=== PATIENT | female | born 1935 | race Caucasian/White ===

== ENCOUNTER 2018-03-16 03:49 | Outpatient (CLI) ==
[2016-08-10 17:05] VITALS: BMI 20.2
== END 2018-03-16 03:50 | disposition home or self-care (01) ==
LOC: LAB 03:49
PROVIDERS: ATTEND General Practice
DX: L02.512 Cutaneous abscess of left hand (principal)
CPT/HCPCS: 87070

== ENCOUNTER 2019-01-09 09:11 | Inpatient (IN) ==
[2019-01-09] MEDS ORDERED: DILAUDID 0.5 MG/0.5 ML SYRINGE IVP STA ×2 (09:25→10:38)
[2019-01-09] MEDS ORDERED: DILAUDID 0.5 MG/0.5 ML SYRINGE ONE (09:27)
--- NOTE | 2019-01-09 09:27 | ED.PDOC ---
General ED Provider: Dr. EDEN VAZQUEZ Chief Complaint: Shortness of Air Stated Complaint: Patient states she has a pain in back muscles Time Seen by Physician: 15:00 Mode of Arrival: Ambulance Information Source: Patient, EMT Exam Limitations: No limitations Primary Care Provider: JAIMIE WOODALL Nursing and Triage Documentation Reviewed and Agree: Yes Does patient meet sepsis criteria?: No System Inflammatory Response Syndrome: Not Applicable Sepsis Protocol: For patient's 13 years and over: Temp is 96.8 and below OR 101 and greater Pulse >90 BPM Resp >20/minute Acutely Altered Mental Status Are patient's symptoms suggestive of a new infection, such as: -Pneumonia -Skin, Soft Tissue -Endocarditis -UTI -Bone, Joint Infection -Implantable Device -Acute Abdominal Infection -Wound Infection -Meningitis -Blood Stream Catheter Infection -Unknown Musculoskeletal Complaint Exam - Back Pain Complaint/Exam Mechanism of Injury: Reports: No known trauma Onset/Duration: today Symptoms Are: Still present Timing: Constant Episodes Lasting: Hours Initial Severity: Moderate Current Severity: Moderate Location: Reports: Diffuse Character: Reports: Aching Alleviating: Reports: Rest, Position Associated Signs and Symptoms: Reports: Pain with weight bearing TAD Risk Factors: Reports: Hypertension AAA Risk Factors: Reports: Hypertension Cauda Equina Risk Factors: Reports: None Epidural Abcess Risk Factors: Reports: None Related Surgical History: Reports: None Focal Tenderness: No Paraspinal Muscle Tenderness: No (Palpation-pressure is negative) Paraspinal Muscle Spasm: No Focal Weakness: Present: None Focal Sensory Loss: Present: None Differential Diagnoses: Strain, Sprain Review of Systems - Review Of Systems Constitutional: Reports: No symptoms Eyes: Reports: No symptoms Ears, Nose, Mouth, Throat: Reports: No symptoms Respiratory: Reports: No symptoms Cardiac: Reports: No symptoms GI: Reports: No symptoms : Reports: No symptoms Musculoskeletal: Reports: No symptoms Skin: Reports: No symptoms Neurological: Reports: No symptoms Endocrine: Reports: No symptoms Hematologic/Lymphatic: Reports: No symptoms All Other Systems: Reviewed and Negative Past Medical History - Past Medical History Previously Healthy: Yes Endocrine: Reports: None Cardiovascular: Reports: None Respiratory: Reports: COPD Hematological: Reports: None Gastrointestinal: Reports: None Genitourinary: Reports: None Neuro/Psych: Reports: None Musculoskeletal: Reports: None Cancer: Reports: None Last Menstrual Period: na - Surgical History General Surgical History: Reports: Unknown - Family History Family History: Reports: Unknown - Social History Smoking Status: Former smoker Hx Substance Use: No Alcohol Screening: None - Immunizations Tetanus Shot up to Date: No Physical Exam - Physical Exam Appearance: Thin Ill-appearing: Mild Pain Distress: Moderate Eyes: JEREMIAH ENT: Ears normal Neck: Supple Respiratory: Airway patent Cardiovascular: RRR GI/: Soft Musculoskeletal: Normal strength Skin: Warm Neurological: Sensation intact Interpretation - Radiology Interpretation Radiology Interpretation By: ED Physician Radiology Results: Negative Exam Interpreted: Portable CXR Re-Evaluation - Re-Evaluation Time of Re-Evaluation: 09:58 (bp 158/86) Status: Improved Vital Signs Stable: Yes Pain Level: decreased to almost 0 as per patient vertbal report Appearance: NAD Lungs: Clear Skin: Warm and Dry Neuro: Alert and Oriented X3 CV: Other Additional Comments: Patient in no apparent pain,says will take her BP meds at home to catch up. - Re-Evaluation Time of Re-Evaluation: 10:54 (BP 145/87) Status: Improved Vital Signs Stable: Yes Pain Level: comfortable after second dose 0.5 mg Dilaudid IV.NS infusing at 125/ h rate Appearance: NAD Skin: Warm and Dry Neuro: Alert and Oriented X3 Critical Care Note - Critical Care Note Total Time (mins): 0 Course - Course Hematology/Chemistry: 01/09/19 09:48 01/09/19 09:48 Orders, Labs, Meds: Lab Review 01/09/19 01/09/19 01/09/19 09:48 09:48 09:48 WBC 13.64 H RBC 4.57 Hgb 14.2 Hct 43.3 MCV 94.7 MCH 31.1 H MCHC 32.8 RDW Coeff of Nick 12.6 Plt Count 262 Immature Gran % (Auto) 1.5 Neut % (Auto) 60.8 Lymph % (Auto) 27.9 Tate % (Auto) 8.3 Eos % (Auto) 1.1 Baso % (Auto) 0.4 Immature Gran # (Auto) 0.2 Neut # (Auto) 8.3 H Lymph # (Auto) 3.8 H Tate # (Auto) 1.1 Eos # (Auto) 0.2 Baso # (Auto) 0.1 D-Dimer (Manual) 2899.20 Sodium 140.7 Potassium 4.10 Chloride 109.0 H Carbon Dioxide 26.9 Anion Gap 8.90 BUN 16.7 Creatinine 0.97 Estimated GFR (MDRD) 55.00 BUN/Creatinine Ratio 17.21 Glucose 95.6 Lactic Acid Calcium 10.02 Total Bilirubin 0.66 AST 30.1 ALT 24.6 Alkaline Phosphatase 59.6 Total Creatine Kinase 67.2 Troponin I < 0.012 Total Protein 6.43 Albumin 3.87 Globulin 2.56 Albumin/Globulin Ratio 1.51 Procalcitonin 01/09/19 01/09/19 09:48 09:48 WBC RBC Hgb Hct MCV MCH MCHC RDW Coeff of Nick Plt Count Immature Gran % (Auto) Neut % (Auto) Lymph % (Auto) Tate % (Auto) Eos % (Auto) Baso % (Auto) Immature Gran # (Auto) Neut # (Auto) Lymph # (Auto) Tate # (Auto) Eos # (Auto) Baso # (Auto) D-Dimer (Manual) Sodium Potassium Chloride Carbon Dioxide Anion Gap BUN Creatinine Estimated GFR (MDRD) BUN/Creatinine Ratio Glucose Lactic Acid 1.15 Calcium Total Bilirubin AST ALT Alkaline Phosphatase Total Creatine Kinase Troponin I Total Protein Albumin Globulin Albumin/Globulin Ratio Procalcitonin < 0.05 Orders Category Date Time Status EKG-(ED ONLY) Stat CARDIO 01/09/19 09:34 Completed NPO REMINDER: IMAGING ONCE CARE 01/09/19 09:34 Active IV [ED IV/MEDIPORT/POWERPORT] .ONCE EMERGENCY 01/09/19 09:29 Active BLOOD CULTURE Stat LAB 01/09/19 10:15 Received CBC W/ AUTO DIFF Stat LAB 01/09/19 09:48 Completed COMPREHENSIVE METABOLIC PANEL Stat LAB 01/09/19 09:48 Completed CREATINE KINASE Stat LAB 01/09/19 09:48 Completed D-DIMER Stat LAB 01/09/19 09:48 Completed LACTIC ACID Stat LAB 01/09/19 09:48 Completed PROCALCITONIN Stat LAB 01/09/19 09:48 Completed TROPONIN I Stat LAB 01/09/19 09:48 Completed 0.9 % Sodium Chloride [Saline Flush] MEDS 01/09/19 09:29 Active 1 syr IVF PRN PRN Hydromorphone HCl [Dilaudid 0.5 mg/0.5 ml Syringe] MEDS 01/09/19 09:27 Discontinued 0.5 mg .ROUTE .STK-MED ONE Hydromorphone HCl [Dilaudid 0.5 mg/0.5 ml Syringe] MEDS 01/09/19 09:25 Discontinued 0.5 mg IVP ONCE STA Hydromorphone HCl [Dilaudid 0.5 mg/0.5 ml Syringe] MEDS 01/09/19 10:38 Discontinued 0.5 mg IVP ONCE STA Sodium Chloride 0.9% [Sodium Chloride] 500 ml MEDS 01/09/19 10:19 Active IV 100 mls/hr CHEST, 1V AP ONLY Stat RADS 01/09/19 09:[address] CHEST PE PROTOCOL Stat RADS 01/09/19 09:33 Completed Medications Generic Name Dose Route Start Last Admin Trade Name Freq PRN Reason Stop Dose Admin Sodium Chloride 500 mls @ 100 mls/hr 01/09/19 10:19 01/09/19 10:33 Sodium Chloride IV 01/09/19 15:18 100 mls/hr .Q5H STA Administration Sodium Chloride 1 syr 01/09/19 09:29 01/09/19 10:33 Saline Flush IVF 1 syr PRN PRN Administration To flush IV Discontinued Medications Generic Name Dose Route Start Last Admin Trade Name Freq PRN Reason Stop Dose Admin Hydromorphone HCl 0.5 mg 01/09/19 09:25 01/09/19 09:29 Dilaudid 0.5 Mg/0.5 Ml Syringe IVP 01/09/19 09:26 0.5 mg ONCE STA Administration Hydromorphone HCl 0.5 mg 01/09/19 10:38 01/09/19 10:43 Dilaudid 0.5 Mg/0.5 Ml Syringe IVP 01/09/19 10:39 0.5 mg ONCE STA Administration Vital Signs: Temp Pulse Resp BP Pulse Ox 01/09/19 09:12 97.8 F 124 H 25 H 161/89 H 98 Departure - Departure Time of Disposition: 12:54 Disposition: HOME SELF-CARE Discharge Problem: Aortic aneurysm Instructions: Thoracic Aortic Aneurysm (ED) Condition: Good Pt referred to PMD for follow-up: No (follow with Cardiology and Thoracic Sx) IPMP verified?: No Allergies/Adverse Reactions: Allergies cephalexin monohydrate [From Keflex] Allergy (Verified 01/09/19 09:23) palpatations codeine Adverse Reaction (Verified 01/09/19 09:23) diphenhydramine [From Benadryl] Adverse Reaction (Verified 01/09/19 09:23) latex Adverse Reaction (Verified 01/09/19 09:23) meperidine [From Demerol] Adverse Reaction (Verified 01/09/19 09:23) Home Medications: Ambulatory Orders Albuterol Sulfate [Proventil Hfa] 6.7 gm IH DIRECTED PRN 08/10/16 Carboxymethylcellulose Sodium [Refresh Tears] 2 drop EACHEYE DIRECTED Furosemide 20 mg PO 3 TIMES PER WEEK 08/10/16 Potassium Chloride [Klor-Con Sprinkle] 10 meq PO 3 TIMES PER WEEK 08/10/16 Tiotropium Br/Olodaterol HCl [Stiolto Respimat Inhal Clothier] 4 gm IH DAILY Prednisone 5 mg PO DAILY 03/15/18 Diltiazem HCl [Cardizem] 60 mg PO BID 01/09/19 Disposition Discussed With: Patient, Family
[2019-01-09] MEDS ORDERED: SODIUM CHLORIDE 500 ML IV STA (10:19)
--- NOTE | 2019-01-09 11:06 | DI ---
EXAM: One-view chest HISTORY: Chest discomfort, shortness of breath TECHNIQUE: Single frontal view the chest was obtained. FINDINGS: The heart is normal size. Emphysematous changes are seen throughout the lungs. The point vasculature appears normal. The costophrenic angles are sharp. There is hyperinflation of the lung s and flattening of the hemidiaphragms bilaterally. IMPRESSION: Chronic obstructive pulmonary disease. Otherwise no active cardiopulmonary disease.
--- NOTE | 2019-01-09 11:50 | CT ---
Exam: CTA chest. Date: 01/09/2019. Comparison: 08/10/2016. HISTORY: Shortness of breath. TECHNIQUE: Helical scan of the thorax was performed following intravenous contrast. MIP and 3-D rec onstruction was performed. FINDINGS: The thoracic inlet and axillary regions are normal. No suspicious mediastinal adenopathy is seen. When measured at the level of the right main pulmonary artery, image 61, the ascending aort a measures 3.3 x 2.7 cm. At the level of the left atrium, image 70, the descending thoracic aorta me asures 3.6 x 3.6 cm. At about the base of the heart, image 78, the thoracic aorta measures 4.3 x 5.1 cm. Previously it measured 4.0 x 4.6 cm at approximately the same level. The spleen and upper live r have a uniform enhancement. The stomach, pancreas and adrenal glands are normal. There is a 0.3-c m nonobstructing calculus in the upper pole of the left kidney. There is no hydronephrosis. There is an interval wedge compression fracture of the T8 vertebral body, but it appears to be older. There is a stable compression deformity of the superior endplate of L3. Evaluation at lung window settings demonstrates centrolobular emphysematous changes. No suspicious p ulmonary nodules, pleural fluid or consolidation is present. There is good enhancement of the pulmonary arteries. No intraluminal filling defects are seen out to the segmental pulmonary arterial divisions. Impression: No acute intrathoracic findings; no evidence of pulmonary emboli out to the segmental pu lmonary arterial divisions. When compared with 08/10/2016, there has been a small but definite increase in the previously identif ied dilatation of the descending thoracic aorta. The luminal diameter has increased from 4.0 x 4.6 c m up to 4.3 x 5.1 cm. Given this interval enlargement, vascular surgical consultation would be recom mended. Emphysema. Nonobstructing left renal calculus. Interval development of a T8 wedge compression fracture, but it appears to be old. Stable old compre ssion deformity of the superior endplate of L3.
[2019-01-09] MEDS: TORADOL IVP PRN (13:58)
--- NOTE | 2019-01-09 14:46 | CT ---
EXAM: CT scan of the lumbar spine without contrast HISTORY: Low back pain, no obvious injury TECHNIQUE: Helical imaging of the lumbar spine was performed without contrast. Sagittal and coronal reconstructions and axial images were provided for interpretation. FINDINGS: There is chronic appearing compression deformity of the L3 and L4 vertebral bodies. No de finite new compression fractures are seen. The bones are osteopenic. The paraspinal soft tissues ar e normal. The spinous processes and transverse processes are intact. There is dilatation of the dis ban descending thoracic aorta measuring 3.9 cm diameter. There is additional aneurysmal dilatation o f the infrarenal abdominal aorta measuring 3.2 cm transverse. Segmental analysis: T12-L1: The central canal and neural foramina appear patent. L1-L2: The central canal and neural foramina appear adequately patent. L2-L3: The central canal and neural foramina appear adequately patent. L3-L4: There is mild disc bulge. The central canal and neural foramina appear adequately patent. L4-L5: There is disc bulge and mild to moderate facet arthropathy and enlargement of the posterior l igament flavum resulting in mild central canal and lateral recess stenosis. There is mild narrowing of the neural foramina. L5-S1: The central canal and lateral recesses and neural foramina appear adequately patent. IMPRESSION: No evidence of acute compression fracture. Chronic appearing compression deformity of the L3 and L4 vertebral bodies. Mild central canal and lateral recess stenosis seen at L4-L5. Aneurysmal dilatation of the distal descending thoracic aorta measuring 3.9 cm diameter. Aneurysmal dilatation of the infrarenal abdominal aorta measuring 3.2 cm.
[2019-01-09 15:06] VITALS: BMI 21.8
[2019-01-09] MEDS ORDERED: XOPENEX 1.25 MG NEB PRN (15:25)
[2019-01-09] MEDS ORDERED: NITROSTAT SL PRN (15:33)
[2019-01-09] MEDS ORDERED: ATROPINE SULFATE PFS IVP PRN (15:33)
[2019-01-09] MEDS: SODIUM CHLORIDE 1,000 ML IV SCH (15:37)
[2019-01-09] MEDS ORDERED: PROAIR HFA IH PRN (15:49)
[2019-01-09] MEDS ORDERED: NON-FORMULARY MEDICATION (Potassium Chloride [Klor-Con 10] 10 MEQ) PO SCH (16:00)
[2019-01-09] MEDS ORDERED: MICRO-K CAP PO SCH (16:00)
[2019-01-09] MEDS ORDERED: LASIX TAB PO SCH (16:00)
[2019-01-09] MEDS ORDERED: CARBOXYMETHYLCELLULOSE SODIUM EACHEYE SCH (16:00)
[2019-01-09] MEDS: DECADRON 4 MG/ML SDV IM SCH (16:08)
[2019-01-09] MEDS: MICRO-K CAP PO SCH (16:08)
[2019-01-09] MEDS: CARDIZEM PO SCH ×2 (16:08→21:34)
[2019-01-09] MEDS: DILAUDID 1 MG/ML SYRINGE IVP PRN (16:13)
[2019-01-09] MEDS ORDERED: XOPENEX 1.25 MG NEB ONE (16:20)
[2019-01-09] MEDS ORDERED: SOLU-CORTEF 100 MG ONE (21:35)
[2019-01-09] MEDS ORDERED: SOLU-CORTEF 100 MG IVP STA (21:39)
[2019-01-10] MEDS ORDERED: XOPENEX 1.25 MG NEB ONE (01:52)
[2019-01-10] MEDS: TORADOL IVP PRN ×2 (01:56→08:33)
[2019-01-10] MEDS: SODIUM CHLORIDE 1,000 ML IV SCH ×2 (03:52→16:43)
[2019-01-10] MEDS: DILAUDID 1 MG/ML SYRINGE IVP PRN ×3 (04:08→16:44)
[2019-01-10] MEDS: XOPENEX 1.25 MG NEB SCH ×4 (04:43→23:02)
[2019-01-10] MEDS ORDERED: SOLU-CORTEF 100 MG IVP STA (07:52)
[2019-01-10] MEDS ORDERED: ARTIFICIAL TEARS OPTH SOL OP SCH (08:00)
[2019-01-10] MEDS: CARDIZEM PO SCH ×2 (08:34→20:40)
[2019-01-10] MEDS: DECADRON 4 MG/ML SDV IM SCH (08:34)
[2019-01-10] MEDS: ZITHROMAX PO SCH (08:35)
[2019-01-10] MEDS: LASIX TAB PO SCH (08:35)
[2019-01-10] MEDS: ASPIRIN EC PO SCH (08:35)
[2019-01-10] MEDS: PREDNISONE PO SCH ×2 (08:35→16:46)
[2019-01-10] MEDS: MICRO-K CAP PO SCH (08:35)
[2019-01-10] MEDS: LOVENOX SUBCUT SCH (08:35)
[2019-01-10] MEDS: TIOTROPIUM BR IH SCH (08:36)
[2019-01-10] MEDS: [UNRECOGNIZED DRUG - OTHER] IH SCH (08:36)
[2019-01-10] MEDS: OLODATEROL HCL IH SCH (08:36)
[2019-01-10] MEDS ORDERED: MYLANTA SUSP PO STA (09:20)
[2019-01-10] MEDS ORDERED: MYLANTA SUSP ONE (09:22)
--- NOTE | 2019-01-10 10:35 | PCM.PROG ---
Attending Provider: ATTENDING PROVIDER: Dr. JAIMIE WOODALL DATE OF SERVICE: 01/10/19 SUBJECTIVE: This 83 year old WHITE/ F was hospitalized 01/09/19. The patient was hospitalized with thoracolumbar muscle spasm with underlined chronic fractures of T and L spine by x-ray. The patient was sitting in the chair all day Thursday she was going to move and sit in the bed and that is when she had muscle spasms. They then brought her to the hospital on Thursday. Pain is much less. She is able to sit on the commode this morning. Breathing is somewhat better. REVIEW OF SYSTEMS: CONSTITUTIONAL: No night sweats. No fatigue, malaise, lethargy. No fever or chills. HEENT: Eyes: No visual changes. No eye pain. No eye discharge. ENT: No runny nose. No epistaxis. No sinus pain. No odynophagia. No congestion. RESPIRATORY: No cough, no congestion. No hemoptysis. Shortness of breath. CARDIOVASCULAR: No angina symptoms. No CHF symptoms. No atypical chest pain for CAD. No palpitations. No orthopnea.. GASTROINTESTINAL: No abdominal pain. No nausea or vomiting. No diarrhea or constipation. No hematemesis. No hematochezia. GENITOURINARY: No urgency. No frequency. No dysuria. No hematuria. No obstructive symptoms. No discharge. No pain. No significant abnormal bleeding. MUSCULOSKELETAL: No musculoskeletal pain; no joint swelling. Soreness of muscles in right flank area. NEUROLOGICAL: Awake, alert, oriented to time, place and person. No headache. No neck pain. No syncope. No seizures. No dizziness. PSYCHIATRIC: Not anxious. No depression. No suicidal thoughts. No homicidal thoughts. SKIN: No rash. No lesions. No wounds. ENDOCRINE: No unexplained weight loss. No weight gain. HEMATOLOGIC/LYMPHATIC: No anemia. No purpura. No petechiae. No prolonged or excessive bleeding. No palpable lymph nodes. PHYSICAL EXAMINATION: GENERAL: The patient is awake, alert and oriented, lying in bed in no distress. VITAL SIGNS: Temperature 97.3 F, Pulse 99, Respiratory Rate 20, BP 148/73, Pulse Ox 99% HEENT: Head normocephalic, atraumatic. Eyes: Extraocular muscles are intact. Pupils are equal, round and reactive to light and accommodation. Ears: No lesions. Nose appeared normal. Throat: No exudate or erythema. NECK: Supple. No JVD, no carotid bruit. No lymphadenopathy or thyromegaly. LUNGS: Decreased breath sounds but better air entry. Mild expiratory wheezing. Clear to auscultation. Percussion note normal. Chest symmetrical. HEART: S1, S2, no S3. No murmurs. No cyanosis or clubbing. No ascites. Pulses: Dorsalis pedis and posterior tibial pulses +1 both sides. ABDOMEN: Soft. Non-tender. Bowel sounds active. No CVA tenderness. No mass felt. EXTREMITIES: No edema. Full range of motion of all extremities, equal. NEUROLOGIC: No focal deficit. Cranial nerves II through XII are grossly intact. No headache, no double vision or headache. SKIN: Warm and dry. Intact. Turgor-normal. LYMPHATIC: No palpable lymph nodes/no lymphedema. MUSCULOSKELETAL: Normal joints with no swelling. Muscle tone is normal. LAB REVIEW: 01/10/19 04:45 01/10/19 04:45 01/10/19 04:45: PT 9.3, INR 0.93 01/10/19 04:45: WBC 10.03, RBC 4.09 L, Hgb 12.6, Hct 38.5, MCV 94.1, MCH 30.8, MCHC 32.7, RDW Coeff of Nick 12.5, Plt Count 208, Immature Gran % (Auto) 0.5, Neut % (Auto) 93.0, Lymph % (Auto) 3.3 L, Dodge % (Auto) 3.1, Eos % (Auto) 0.0, Baso % (Auto) 0.1, Immature Gran # (Auto) 0.1, Neut # (Auto) 9.3 H, Lymph # ( Auto) 0.3 L, Dodge # (Auto) 0.3 L, Eos # (Auto) 0.0, Baso # (Auto) 0.0 01/10/19 04:45: Sodium 139.7, Potassium 4.26, Chloride 106.0, Carbon Dioxide 25.0, Anion Gap 12.96, BUN 19.1 H, Creatinine 0.96, Estimated GFR (MDRD) 55.00, BUN/Creatinine Ratio 19.89, Glucose 151.3 H D, Calcium 9.54, Total Bilirubin 0.65, AST 34.1, ALT 27.1, Alkaline Phosphatase 59.2, Total Creatine Kinase 106.8 , Troponin I < 0.012, Total Protein 6.35, Albumin 3.88, Globulin 2.47, Albumin/ Globulin Ratio 1.57 01/09/19 20:20: Total Creatine Kinase 95.3, Troponin I < 0.012 01/09/19 20:00: Urine Color Yellow, Urine Clarity Clear, Urine pH 5.0, Ur Specific Somers 1.015, Urine Protein 1+, Urine Glucose (UA) Negative, Urine Ketones Negative, Urine Blood Negative, Urine Nitrite Negative, Urine Bilirubin Negative, Urine Urobilinogen 0.2, Ur Leukocyte Esterase Negative, Ur Squamous Epith Cells 0-2 01/09/19 09:48: Procalcitonin < 0.05 01/09/19 09:48: Lactic Acid 1.15 01/09/19 09:48: D-Dimer (Manual) 2899.20 01/09/19 09:48: Sodium 140.7, Potassium 4.10, Chloride 109.0 H, Carbon Dioxide 26.9, Anion Gap 8.90, BUN 16.7, Creatinine 0.97, Estimated GFR (MDRD) 55.00, BUN /Creatinine Ratio 17.21, Glucose 95.6, Calcium 10.02, Total Bilirubin 0.66, AST 30.1, ALT 24.6, Alkaline Phosphatase 59.6, Total Creatine Kinase 67.2, Troponin I < 0.012, Total Protein 6.43, Albumin 3.87, Globulin 2.56, Albumin/Globulin Ratio 1.51 01/09/19 09:48: WBC 13.64 H, RBC 4.57, Hgb 14.2, Hct 43.3, MCV 94.7, MCH 31.1 H , MCHC 32.8, RDW Coeff of Nick 12.6, Plt Count 262, Immature Gran % (Auto) 1.5, Neut % (Auto) 60.8, Lymph % (Auto) 27.9, Dodge % (Auto) 8.3, Eos % (Auto) 1.1, Baso % (Auto) 0.4, Immature Gran # (Auto) 0.2, Neut # (Auto) 8.3 H, Lymph # ( Auto) 3.8 H, Dodge # (Auto) 1.1, Eos # (Auto) 0.2, Baso # (Auto) 0.1 ASSESSMENT: Please see below. 1. Thoracolumbar muscle spasm underline chronic fracture of T and L spine. 2. Severe chronic lung disease 3. Hypertension 4. Dyslipidemia 5. Abdominal descending aortic aneurysm. PLAN: 1. The patient does not want referral for any reason. 2. The patient is Do Not Intubate and no respirator. Only CPR. 3. One extra dose of Solu-Cortef 4. Continue Toradol and Dilaudid 5. Xopenex treatment. Plan and coordination of the patient's care discussed in the presence of Snuff Box Finisher and nurse. CONDITION: Stable. SCRIBED BY: KENDRICK JONES Flour Blender Helper scribed while in presence of service performed by Dr. JAIMIE WOODALL on 01/10/19 (1300)
--- NOTE | 2019-01-10 11:36 | PN ---
DATE OF SERVICE: 01/09/19 SUBJECTIVE: 83 year old white female hospitalized with back pain. The patient's back pain is upper lumbar area and lower thoracic spine more on movement. The patient has this pain for several days. She decided to come to the emergency room. Incidental finding on CT scan of the chest showed abdominal aortic aneurysm 5.1 no dissection noted. REVIEW OF SYSTEMS: CONSTITUTIONAL: No night sweats. No fatigue, malaise, lethargy. No fever or chills. HEENT: Eyes: No visual changes. No eye pain. No eye discharge. ENT: No runny nose. No epistaxis. No sinus pain. No sore throat. No odynophagia. No congestion. RESPIRATORY: No cough, no congestion. No hemoptysis. No shortness of breath. CARDIOVASCULAR: No angina symptoms. No CHF symptoms. No atypical chest pain for CAD. No palpitations. No PND. No orthopnea. GASTROINTESTINAL: No abdominal pain. No nausea or vomiting. No diarrhea or constipation. No hematemesis. No hematochezia. GENITOURINARY: No urgency. No frequency. No dysuria. No hematuria. No obstructive symptoms. No discharge. No pain. No significant abnormal bleeding. MUSCULOSKELETAL: No musculoskeletal pain; no joint swelling. NEUROLOGICAL: No headache. No neck pain. No syncope. No seizures. No dizziness. PSYCHIATRIC: Not anxious. No depression. No suicidal thoughts. No homicidal thoughts. SKIN: No rash. No lesions. No wounds. ENDOCRINE: No unexplained weight loss. No weight gain. HEMATOLOGIC/LYMPHATIC: No anemia. No purpura. No petechiae. No prolonged or excessive bleeding. No palpable lymph nodes. PHYSICAL EXAMINATION: GENERAL: The patient is oriented to time, place and person. No distress. HEENT: Head normocephalic, atraumatic. Eyes: Extraocular muscles are intact. Pupils are equal, round and reactive to light and accommodation. Ears: No lesions. Nose appeared normal. Throat: No exudate or erythema. NECK: Supple. No JVD, no carotid bruit. No lymphadenopathy or thyromegaly. LUNGS:Mild wheeze with good entry. Clear to auscultation. Percussion note normal. Chest symmetrical. HEART: S1, S2, no S3. No murmurs. No cyanosis or clubbing. No ascites. Pulses: Dorsalis pedis and posterior tibial pulses +1 to +2 bilaterally. ABDOMEN: Soft. Nontender. Bowel sounds active. No CVA tenderness. No mass felt. EXTREMITIES: No edema. Full range of motion of all extremities, equal. NEUROLOGIC: No focal deficit. Cranial nerves II through XII are grossly intact. No headache, no double vision or headache. SKIN: Not dry. Intact. Turgor - normal. LYMPHATIC: No palpable lymph nodes/no lymphedema. MUSCULOSKELETAL: Normal joints with no swelling. Muscle tone is normal. Pain mainly located to the back area. LABS: Lumbar CT scan reports pending. ASSESSMENT: 1. Thoracolumbar muscle spasms 2. Chronic lung disease, severe 3. Hypertension 4. Sinus tachycardia 5. Aortic aneurysm PLAN: 1. Give patient IV Toradol 30mg Q 6 hours 2. Dilaudid 1mg Q 4 hours 3. Continue NEBS treatment 4. 1/2cc Decadron which help the back muscle spasm and probably chronic lung disease 5. The patient is going to be telemetry CONDITION: Stable. TIME SPENT: More than 30 minutes. ADDENDUM: The son was present in the room. The patient wants no intubation or respirator just a CPR without intubation. The son knows that the patient's emphysema is really severe followed by Dr. Ann who is a pulmonary physician. The patient is known to have thoracic aneurysm descending aorta but she knows that she is not a candidate for any surgery. She doesn't want any referral to any vascular surgeon. The patient's CT scan of the chest showed maybe mild enlargement that from the previous 2016 CT scan enlargement of the aorta, 1mm or 2. CT of the lumbar spine didn't show any acute findings except for L3 and L4 old compression fracture. According to the patient the pain started yesterday when she tried to get up in the bed. She sat in the recliner all day and she was feeling fine then. Pain was generalized lower back. now it is more localized to the right waist up the lumbar area. L2 and L3 more like radiculopathy type of pain. The patient's rated pain is 2-9 on a scale of 1-10 when it hit her that brought her to the emergency room. Whenever she is laying/sitting up in the bed the patient says that she doesn't have much pain at all but on movement she gets muscle spasm on right flank area. The patient's pedal pulses are 1+ bilaterally. She is not in any distress. Her lungs have decreased breath sounds with mild expiratory wheeze. The patient will be given 100mg IV Solu-Cortef. Plan and coordination of the patient's care discussed in the presence of nurse. RUDY
[2019-01-10] MEDS ORDERED: VASOTEC IV ONE (21:49)
[2019-01-10] MEDS ORDERED: CARDIZEM ONE (21:49)
[2019-01-10] MEDS ORDERED: VASOTEC IV IVP STA (21:58)
[2019-01-10] MEDS ORDERED: CARDIZEM PO SCH (22:00)
[2019-01-11] MEDS: XOPENEX 1.25 MG NEB SCH ×4 (04:48→23:20)
[2019-01-11] MEDS: LASIX TAB PO SCH (05:44)
[2019-01-11] MEDS: DILAUDID 1 MG/ML SYRINGE IVP PRN (06:27)
[2019-01-11] MEDS: SODIUM CHLORIDE 1,000 ML IV SCH ×2 (06:36→19:00)
[2019-01-11] MEDS ORDERED: MORPHINE 2 MG/ML SYRINGE IVP STA (08:17)
[2019-01-11] MEDS: SOLU-CORTEF 100 MG IVP SCH ×4 (08:48→23:53)
[2019-01-11] MEDS: TESSALON PERLES PO SCH ×4 (08:49→21:25)
[2019-01-11] MEDS: OLODATEROL HCL IH SCH (08:49)
[2019-01-11] MEDS: ZITHROMAX PO SCH (08:49)
[2019-01-11] MEDS: [UNRECOGNIZED DRUG - OTHER] IH SCH (08:49)
[2019-01-11] MEDS: TIOTROPIUM BR IH SCH (08:49)
[2019-01-11] MEDS: MICRO-K CAP PO SCH (08:50)
[2019-01-11] MEDS: PREDNISONE PO SCH ×2 (08:50→16:51)
[2019-01-11] MEDS: CARDIZEM PO SCH ×2 (08:50→21:26)
[2019-01-11] MEDS: XANAX PO SCH ×4 (08:51→21:25)
[2019-01-11] MEDS: ASPIRIN EC PO SCH (08:51)
[2019-01-11] MEDS: LOVENOX SUBCUT SCH (08:59)
--- NOTE | 2019-01-11 09:08 | PCM.PROG ---
Attending Provider: ATTENDING PROVIDER: Dr. JAIMIE WOODALL DATE OF SERVICE: 01/11/19 SUBJECTIVE: This 83 year old WHITE/ F was hospitalized 01/09/19 with intractable back pain mostly right sided, positional. Her other problems are chronic lung disease with exacerbation of COPD. The patient has bilateral wheezing today and is anxious. REVIEW OF SYSTEMS: CONSTITUTIONAL: No night sweats. No fatigue, malaise, lethargy. No fever or chills. HEENT: Eyes: No visual changes. No eye pain. No eye discharge. ENT: No runny nose. No epistaxis. No sinus pain. No odynophagia. No congestion. RESPIRATORY: No cough, no congestion. No hemoptysis. Shortness of breath on exertion. CARDIOVASCULAR: No angina symptoms. No CHF symptoms. No atypical chest pain for CAD. No palpitations. No orthopnea.. GASTROINTESTINAL: No abdominal pain. No nausea or vomiting. No diarrhea or constipation. No hematemesis. No hematochezia. GENITOURINARY: No urgency. No frequency. No dysuria. No hematuria. No obstructive symptoms. No discharge. No pain. No significant abnormal bleeding. MUSCULOSKELETAL: No musculoskeletal pain; no joint swelling. NEUROLOGICAL: Awake, alert, oriented to time, place and person. No headache. No neck pain. No syncope. No seizures. No dizziness. PSYCHIATRIC: Anxious. No depression. No suicidal thoughts. No homicidal thoughts. SKIN: No rash. No lesions. No wounds. ENDOCRINE: No unexplained weight loss. No weight gain. HEMATOLOGIC/LYMPHATIC: No anemia. No purpura. No petechiae. No prolonged or excessive bleeding. No palpable lymph nodes. PHYSICAL EXAMINATION: GENERAL: The patient is awake, alert and oriented, lying in bed in no distress. VITAL SIGNS: Temperature 97.9 F, Pulse 104, Respiratory Rate 22, BP 173/73, Pulse Ox 97% HEENT: Head normocephalic, atraumatic. Eyes: Extraocular muscles are intact. Pupils are equal, round and reactive to light and accommodation. Ears: No lesions. Nose appeared normal. Throat: No exudate or erythema. NECK: Supple. No JVD, no carotid bruit. No lymphadenopathy or thyromegaly. LUNGS: Decreased breath sounds with expiratory wheezing, mild with acceptable air entry. Percussion note normal. Chest symmetrical. HEART: S1, S2, no S3. No murmurs. No cyanosis or clubbing. No ascites. Pulses: Dorsalis pedis and posterior tibial pulses +1 to +2 both sides. ABDOMEN: Soft. Non-tender. Bowel sounds active. No CVA tenderness. No mass felt. EXTREMITIES: No edema. Full range of motion of all extremities, equal. NEUROLOGIC: No focal deficit. Cranial nerves II through XII are grossly intact. No headache, no double vision or headache. SKIN: Warm and dry. Intact. Turgor-normal. LYMPHATIC: No palpable lymph nodes/no lymphedema. MUSCULOSKELETAL: Normal joints with no swelling. Muscle tone is normal. LAB REVIEW: 01/11/19 04:55 01/11/19 04:55 01/11/19 04:55: Sodium 135.3, Potassium 3.75, Chloride 102.3, Carbon Dioxide 27.0, Anion Gap 9.75, BUN 21.6 H, Creatinine 0.87, Estimated GFR (MDRD) 62.00, BUN/Creatinine Ratio 24.82, Glucose 114.8 H, Calcium 10.04, Total Bilirubin 0.75 , AST 50.3 H, ALT 28.6, Alkaline Phosphatase 50.4 L, Total Protein 5.64 L, Albumin 3.22 L, Globulin 2.42, Albumin/Globulin Ratio 1.33 01/11/19 04:55: PT 9.3, INR 0.93 01/11/19 04:55: WBC 14.47 H, RBC 3.66 L, Hgb 11.5 L, Hct 33.7 L, MCV 92.1, MCH 31.4 H, MCHC 34.1, RDW Coeff of Nick 12.4, Plt Count 195, Immature Gran % (Auto) 0.8, Neut % (Auto) 87.0, Lymph % (Auto) 4.4 L, [place] % (Auto) 7.7, Eos % (Auto) 0.0, Baso % (Auto) 0.1, Immature Gran # (Auto) 0.1, Neut # (Auto) 12.6 H, Lymph # (Auto) 0.6, [place] # (Auto) 1.1, Eos # (Auto) 0.0, Baso # (Auto) 0.0 ASSESSMENT: Please see below. 1. Back pain continued mostly in the right flank area. 2. Hypertension, last night and was treated with Cardizem and Vasotec IV. 3. Chronic lung disease PLAN: 1. Change NEBS to Xopenex six times a day 2. IV Solu-Cortef 100mg Q 6 hours 3. Morphine sulfate 1-2mg IV Q 4 hours. 4. Discontinue Dilaudid 5. Continue Toradol. Plan and coordination of the patient's care discussed in the presence of Food Preparation Worker and nurse. CONDITION: Stable PROGNOSIS: Guarded. NO INTUBATION. NO RESPIRATOR. CPR ONLY SCRIBED BY: Neil ACEVEDO scribed while in presence of service performed by Dr. JAIMIE WOODALL on 01/11/19 ([id number])
[2019-01-11] MEDS ORDERED: XOPENEX 1.25 MG NEB SCH (10:00)
--- NOTE | 2019-01-11 11:15 | HP ---
DATE OF SERVICE: 01/09/19 REASON FOR HOSPITALIZATION: Intractable back pain. HISTORY OF PRESENT ILLNESS: 83 year old white female presented to the emergency room on 01/09/19 with shortness of breath. The patient also complained of back muscle spasms. The pain as she describes more like muscular more on movement, twisting movement. The patient says that she was doing fine until morning of Thursday. All day Thursday she sat in the recliner and then she got up to go to the bed to sit up in the bed that is when she started having back muscle spasm on the right side. The patient was given Dilaudid which helped. Toradol according to her didn't help. Also complained of shortness of breath and mild cough. She has severe chronic lung disease. PAST MEDICAL HISTORY/PAST SURGICAL HISTORY: Known aneurysm of abdominal aorta for which she doesn't want anything to be done B12 deficiency Coronary calcification by CT angiogram COPD Dyslipidemia Insomnia Psoriasis, Dr. Ahumada follows her Home oxygen REVIEW OF SYSTEMS: CONSTITUTIONAL: No night sweats. No fatigue, malaise, lethargy. No fever or chills. HEENT: Eyes: No visual changes. No eye pain. No eye discharge. ENT: No runny nose. No epistaxis. No sinus pain. No sore throat. No odynophagia. No ear pain. No congestion. RESPIRATORY: No cough, no congestion. No hemoptysis. No shortness of breath. CARDIOVASCULAR: No angina symptoms. No CHF symptoms. No atypical chest pain for CAD. No palpitations. No PND. No orthopnea. GASTROINTESTINAL: No abdominal pain. No nausea or vomiting. No diarrhea or constipation. No hematemesis. No hematochezia. GENITOURINARY: No urgency. No frequency. No dysuria. No hematuria. No obstructive symptoms. No discharge. No pain. No significant abnormal bleeding. MUSCULOSKELETAL: No musculoskeletal pain. No joint swelling. No arthritis. Back pain as described. Right sided now flank type of pain. No radiation to the legs. NEUROLOGICAL: No headache. No neck pain. No syncope. No seizures. No dizziness. PSYCHIATRIC: Not anxious. No depression. No suicidal thoughts. No homicidal thoughts. SKIN: No rash. No lesions. No wounds. ENDOCRINE: No unexplained weight loss. No weight gain. HEMATOLOGIC/LYMPHATIC: No anemia. No purpura. No petechiae. No prolonged or excessive bleeding. No palpable lymph nodes. PERSONAL/FAMILY/SOCIAL HISTORY: The patient is , lost her former a week ago. That is when everything started with her having pains everywhere according to the son. The patient is nonsmoker, used to be heavy smoker. No drug abuse. MEDICATIONS: Furosemide 20mg Po daily Stiolto Respimat 4gram IH daily Refresh Tears 15ml two drops each eye as directed Prednisone 5mg PO twice a day Klor-Con 10meq PO daily Cardizem 60mg PO twice a day ProAir HFA one puff IH Q 6 hours PRN ALLERGIES: Cephalexin Codeine Benadryl Latex Demerol PHYSICAL EXAMINATION: VITAL SIGNS: Temperature 97.7, pulse 100, respiratory rate 18, blood pressure 160/90 and pulse ox 95%. HEENT: Head normocephalic, atraumatic. Eyes: Extraocular muscles are intact. Pupils are equal, round and reactive to light and accommodation. Ears: No lesions. Nose appeared normal. Throat: No exudate or erythema. NECK: Supple. No JVP, no carotid bruit. No lymphadenopathy or thyromegaly. LUNGS: Decreased breath sounds bilaterally with mild wheeze. Clear to auscultation. Percussion note normal. Chest symmetrical. HEART: S1, S2, no S3. No murmurs. No cyanosis or clubbing. No ascites. Pulses: Dorsalis pedis and posterior tibial pulses +1 bilaterally. Femoral pulses +2 bilaterally. ABDOMEN: Soft. Nontender. Bowel sounds active. No CVA tenderness. No mass felt. EXTREMITIES: No edema. Full range of motion of all extremities, equal. NEUROLOGIC: No focal deficit. Cranial nerves II through XII are grossly intact. No headache, no double vision or headache. SKIN: Not dry. Intact. Turgor - normal. LYMPHATIC: No palpable lymph nodes/no lymphedema. MUSCULOSKELETAL: Normal joints with no swelling. Muscle tone is normal. LABS: Lactic acid and Procalcitonin normal. ALT and AST normal. Creatinine 0.9, BUN 16, Potassium 4.1, hgb 14, hct 43 with normal differential with WBC 13,000. Oxygen saturation on 2 liters is 94%. ASSESSMENT: 1. Severe back muscle spasm with history of L3 or 4 compression fractures which is chronic with DJD spine with osteoporosis. 2. 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 Severe chronic lung disease followed Case 4. History of hypertension 5. Anxiety syndrome 6. Psoriasis PLAN: 1. IV steroids 100mg Q 12 2. Continue NEBS treatment 3. Will given Toradol 30mg Q 6 hours for pain 4. Dilaudid 1-2mg Q 4 PRN 5. The patient doesn't want any intubation or respiratory incase of cardiopulmonary arrest but she wants CPR. 6. She doesn't want any referral for her aneurysm. She clearly mentions that she doesn't have a chance with any surgical procedure to which I agreed. The son also has the same opinion. PROGNOSIS: Guarded. CONDITION: Stable. TIME SPENT: More than 70 minutes. MTDD
[2019-01-11] MEDS: MORPHINE 2 MG/ML SYRINGE IVP PRN (18:10)
[2019-01-12] MEDS: XOPENEX 1.25 MG NEB SCH ×4 (04:18→21:54)
[2019-01-12] MEDS: SOLU-CORTEF 100 MG IVP SCH ×3 (05:37→17:59)
[2019-01-12] MEDS: LASIX TAB PO SCH (05:38)
[2019-01-12] MEDS: MORPHINE 2 MG/ML SYRINGE IVP PRN ×3 (08:47→17:59)
[2019-01-12] MEDS: LOVENOX SUBCUT SCH (08:47)
[2019-01-12] MEDS: PREDNISONE PO SCH ×2 (08:48→17:59)
[2019-01-12] MEDS: CARDIZEM PO SCH ×2 (08:48→21:10)
[2019-01-12] MEDS: COZAAR PO SCH ×2 (08:48→21:09)
[2019-01-12] MEDS: TESSALON PERLES PO SCH ×4 (08:49→21:09)
[2019-01-12] MEDS: XANAX PO SCH ×4 (08:49→21:09)
[2019-01-12] MEDS: ASPIRIN EC PO SCH (08:49)
[2019-01-12] MEDS: ZITHROMAX PO SCH (08:49)
[2019-01-12] MEDS: MICRO-K CAP PO SCH (08:49)
[2019-01-12] MEDS: [UNRECOGNIZED DRUG - OTHER] IH SCH (08:57)
[2019-01-12] MEDS: OLODATEROL HCL IH SCH (08:57)
[2019-01-12] MEDS: TIOTROPIUM BR IH SCH (08:57)
[2019-01-12] MEDS: SODIUM CHLORIDE 1,000 ML IV SCH ×2 (08:58→21:09)
[2019-01-13] MEDS: SOLU-CORTEF 100 MG IVP SCH ×4 (00:05→18:56)
[2019-01-13] MEDS ORDERED: DUONEB NEB STA (02:33)
[2019-01-13] MEDS: XOPENEX 1.25 MG NEB SCH ×3 (04:49→17:08)
[2019-01-13] MEDS: LASIX TAB PO SCH (05:56)
[2019-01-13] MEDS ORDERED: GI COCKTAIL PO STA (08:16)
[2019-01-13] MEDS ORDERED: LASIX IVP STA (08:18)
[2019-01-13] MEDS: TORADOL IVP PRN (08:25)
--- NOTE | 2019-01-13 10:58 | PCM.PROG ---
Attending Provider: ATTENDING PROVIDER: Dr. JAIMIE WOODALL DATE OF SERVICE: 01/13/19 SUBJECTIVE: This 83 year old WHITE/ F was hospitalized 01/09/19 with back pain, right sided. Shortness of breath. Practically no back pain. Costochondritis on coughing. We will get an upper GI in the morning. REVIEW OF SYSTEMS: CONSTITUTIONAL: No night sweats. No fatigue, malaise, lethargy. No fever or chills. HEENT: Eyes: No visual changes. No eye pain. No eye discharge. ENT: No runny nose. No epistaxis. No sinus pain. No odynophagia. No congestion. RESPIRATORY: Cough, no congestion. No hemoptysis. Shortness of breath on minimal exertion. CARDIOVASCULAR: No angina symptoms. No CHF symptoms. No atypical chest pain for CAD. No palpitations. No orthopnea.. GASTROINTESTINAL: No abdominal pain. No nausea or vomiting. No diarrhea or constipation. No hematemesis. No hematochezia. GENITOURINARY: No urgency. No frequency. No dysuria. No hematuria. No obstructive symptoms. No discharge. No pain. No significant abnormal bleeding. MUSCULOSKELETAL: No musculoskeletal pain; no joint swelling. NEUROLOGICAL: Awake, alert, oriented to time, place and person. No headache. No neck pain. No syncope. No seizures. No dizziness. PSYCHIATRIC: Not anxious. No depression. No suicidal thoughts. No homicidal thoughts. SKIN: No rash. No lesions. No wounds. ENDOCRINE: No unexplained weight loss. No weight gain. HEMATOLOGIC/LYMPHATIC: No anemia. No purpura. No petechiae. No prolonged or excessive bleeding. No palpable lymph nodes. PHYSICAL EXAMINATION: GENERAL: The patient is awake, alert and oriented, lying in bed in no distress. VITAL SIGNS: Temperature 97.3 F, Pulse 90, Respiratory Rate 19, BP 119/56, Pulse Ox 94% HEENT: Head normocephalic, atraumatic. Eyes: Extraocular muscles are intact. Pupils are equal, round and reactive to light and accommodation. Ears: No lesions. Nose appeared normal. Throat: No exudate or erythema. NECK: Supple. No JVD, no carotid bruit. No lymphadenopathy or thyromegaly. LUNGS: Decreased breath sounds with mild wheeze. Clear to auscultation. Percussion note normal. Chest symmetrical. HEART: S1, S2, no S3. No murmurs. No cyanosis or clubbing. No ascites. Pulses: Dorsalis pedis and posterior tibial pulses +1 to +2 both sides. ABDOMEN: Soft. Non-tender. Bowel sounds active. No CVA tenderness. No mass felt. EXTREMITIES: No edema. Full range of motion of all extremities, equal. NEUROLOGIC: No focal deficit. Cranial nerves II through XII are grossly intact. No headache, no double vision or headache. SKIN: Warm and dry. Intact. Turgor-normal. LYMPHATIC: No palpable lymph nodes/no lymphedema. MUSCULOSKELETAL: Normal joints with no swelling. Muscle tone is normal. LAB REVIEW: 01/13/19 05:00 01/13/19 05:00 01/13/19 05:00: Sodium 139.4, Potassium 3.25 L, Chloride 108.8 H, Carbon Dioxide 26.3, Anion Gap 7.55, BUN 22.3 H, Creatinine 0.95, Estimated GFR (MDRD) 56.00, BUN/Creatinine Ratio 23.47, Glucose 115.8 H, Calcium 9.40, Total Bilirubin 0.40, AST 35.2, ALT 26.9, Alkaline Phosphatase 45.1 L, Total Protein 5.10 L, Albumin 2.84 L, Globulin 2.26, Albumin/Globulin Ratio 1.25 01/13/19 05:00: WBC 11.29 H, RBC 3.44 L, Hgb 10.8 L, Hct 32.2 L, MCV 93.6, MCH 31.4 H, MCHC 33.5, RDW Coeff of Nick 12.8, Plt Count 198, Immature Gran % (Auto) 0.9, Neut % (Auto) 90.5, Lymph % (Auto) 2.3 L, [place] % (Auto) 6.1, Eos % (Auto) 0.0, Baso % (Auto) 0.2, Immature Gran # (Auto) 0.1, Neut # (Auto) 10.2 H, Lymph # (Auto) 0.3 L, [place] # (Auto) 0.7, Eos # (Auto) 0.0, Baso # (Auto) 0.0 01/13/19 02:39: Puncture Site Rrad, O2 Saturation 95.0, ABG pH 7.324 L, ABG pCO2 46.6 H, ABG pO2 83.0 L, ABG HCO3 24.2, ABG Total CO2 26, ABG Base Excess -2 , Freddie Test +, O2 Delivery Device Bnc, Oxygen Liter Flow 3.00, FiO2 % 32.0 ASSESSMENT: Please see below. 1. Back pain, back muscle spasms. 2. Severe DJD of the spine with compression fractures 3. Costochondritis 4. Severe chronic lung disease. 5. Abdominal aneurysm 6. Hypertension 7. Hypokalemia PLAN: 1. K-Dur 20meq twice a day 2. IV Lasix 20mg 3. Discontinue IV fluids 4. Continue all rest of medications 5. Blood pressure under control and pulse acceptable. Plan and coordination of the patient's care discussed in the presence of Gas Station Manager and nurse. PROGNOSIS: Poor considering the patient's severe chronic lung disease. The patient wants nothing to be done about the aneurysm and the patient is not medical stable to have medical procedure done in my opinion. SCRIBED BY: KENDRICK JONES, Hammerer scribed while in presence of service performed by Dr. JAIMIE WOODALL on 01/13/19 ([id number])
[2019-01-13] MEDS: COZAAR PO SCH ×2 (12:24→20:34)
[2019-01-13] MEDS: TESSALON PERLES PO SCH ×4 (12:24→20:35)
[2019-01-13] MEDS: MICRO-K CAP PO SCH (12:24)
[2019-01-13] MEDS: PREDNISONE PO SCH ×2 (12:25→16:40)
[2019-01-13] MEDS: K-DUR PO SCH ×2 (12:25→16:42)
[2019-01-13] MEDS: CARDIZEM PO SCH ×2 (12:25→20:34)
[2019-01-13] MEDS: XANAX PO SCH ×4 (12:26→20:34)
[2019-01-13] MEDS: MORPHINE 2 MG/ML SYRINGE IVP PRN (12:26)
--- NOTE | 2019-01-13 12:26 | PN ---
DATE OF SERVICE: 01/12/19 SUBJECTIVE: The patient was seen and examined today. The patient was feeling somewhat better , slept very well. Xanax has helped along with Morphine. The patient still has some back pain but she is short of breath on minimal exertion. REVIEW OF SYSTEMS: CONSTITUTIONAL: No night sweats. No fatigue, malaise, lethargy. No fever or chills. HEENT: Eyes: No visual changes. No eye pain. No eye discharge. ENT: No runny nose. No epistaxis. No sinus pain. No sore throat. No odynophagia. No congestion. RESPIRATORY: No cough, no congestion. No hemoptysis. Shortness of breath with exertion, somewhat better. CARDIOVASCULAR: No angina symptoms. No CHF symptoms. No atypical chest pain for CAD. No palpitations. No PND. No orthopnea. GASTROINTESTINAL: No abdominal pain. No nausea or vomiting. No diarrhea or constipation. No hematemesis. No hematochezia. GENITOURINARY: No urgency. No frequency. No dysuria. No hematuria. No obstructive symptoms. No discharge. No pain. No significant abnormal bleeding. MUSCULOSKELETAL: Pain in the back. NEUROLOGICAL: No headache. No neck pain. No syncope. No seizures. No dizziness. PSYCHIATRIC: Not anxious. No depression. No suicidal thoughts. No homicidal thoughts. SKIN: No rash. No lesions. No wounds. ENDOCRINE: No unexplained weight loss. No weight gain. HEMATOLOGIC/LYMPHATIC: No anemia. No purpura. No petechiae. No prolonged or excessive bleeding. No palpable lymph nodes. Pain in the back is more or less well controlled but still requires MS 1 to 2 mg every four hours. The patient's son is very understanding and understands the prognosis for his mother is not good. The patient doesn't want transfer to any other tertiary referral centers. He does not want any further workup as far as aortic aneurysm is concerned. Blood pressure is still somewhat elevated. The patient's Cardizem dose will be increased to 90 a day and Cozaar is added. PHYSICAL EXAMINATION: HEENT: Head normocephalic, atraumatic. Eyes: Extraocular muscles are intact. Pupils are equal, round and reactive to light and accommodation. Ears: No lesions. Nose appeared normal. Throat: No exudate or erythema. NECK: Supple. No JVD, no carotid bruit. No lymphadenopathy or thyromegaly. LUNGS: Decreased breath sounds with mild wheeze. Percussion note normal. Chest symmetrical. HEART: S1, S2, no S3. No murmurs. No cyanosis or clubbing. No ascites. Pulses: Dorsalis pedis and posterior tibial pulses +1 to +2 bilaterally. ABDOMEN: Soft. Nontender. Bowel sounds active. No CVA tenderness. No mass felt. EXTREMITIES: No edema. Full range of motion of all extremities, equal. NEUROLOGIC: No focal deficit. Cranial nerves II through XII are grossly intact. No headache, no double vision or headache. SKIN: Warm and dry. Intact. Turgor - normal. LYMPHATIC: No palpable lymph nodes/no lymphedema. MUSCULOSKELETAL: Normal joints with no swelling. Muscle tone is normal. The patient's echocardiogram revealed normal LV contractility, normal LV size, normal valvular structure. ASSESSMENT: 1. Back pain, back muscle spasm from compression fractures from osteoporosis. 2. Severe chronic lung disease, end-stage. 3. Hypertension. 4. Anxiety disorder. PLAN: 1. Continue Xanax. 2. Morphine Sulfate. 3. Comfort measures along with nebs treatment. 4. IV steroids. 5. Xanax to be continued for anxiety. TIME SPENT: More than 30 minutes. Plan and coordination of the patient's care discussed in the presence of nurse. RUDY
[2019-01-13] MEDS: LOVENOX SUBCUT SCH (12:27)
[2019-01-13] MEDS: PROTONIX IV IVP SCH ×2 (12:28→20:35)
[2019-01-13] MEDS: CARAFATE PO SCH ×3 (12:29→20:35)
[2019-01-13] MEDS: ASPIRIN EC PO SCH (12:30)
[2019-01-13] MEDS: SODIUM CHLORIDE 1,000 ML IV SCH (17:04)
[2019-01-14] MEDS: XOPENEX 1.25 MG NEB SCH ×3 (00:08→17:15)
[2019-01-14] MEDS: SOLU-CORTEF 100 MG IVP SCH ×5 (00:57→23:59)
[2019-01-14] MEDS: CARAFATE PO SCH ×4 (07:00→20:56)
--- NOTE | 2019-01-14 08:11 | ECHO2D ---
Date of Exam: 01/12/19 Ordering Physician: DR. JAIMIE WOODALL Room #: SCU 1 Reason for Echo: SOB, HYPERTENSION, TACHYCARDIA, SEVERE COPD Murmurs: S1, S2 M-Mode Normal Adult Results LV Dimensions Normal Adult Results AoV Opening excursions >1.6 >1.6 LVEDD-base- 3.5-5.8 4.1 Ao root dimensions 2.0-3.7 3.1 LVESD-base- 3.1-4.6 L. Atrium dimensions 1.9-3.8 3.4 Post. Wall thickness 0.8-1.1 1.1 IV septum (thickness) 0.7-1.2 1.0 Post. Wall excursion 0.72-1.3 NORMAL Septal motion NORMAL Systolic motion R. Ventricular cavity 1.5-2.0 3.0 LVEF 60% 67% Paradoxical septal wall motion NORMAL 2-D : 2-D M Mode Echocardiogram was performed using apical four chamber and left parasternal long and short axis views. Mitral, tricuspid and aortic valves appear to be normal. Contractility of the left ventricle seems to be normal, so is the cavity size. Left atrial cavity size and aortic root appear to be normal. There is no pericardial effusion. There is no thrombus noted in the left ventricular or left aortic cavity. No mitral valve prolapse noted. M-MODE: MV: NORMAL AV: NORMAL TV: NORMAL PV: CHAMBER SIZE: ENLARGED RIGHT VENTRICLE CAVITY WALL MOTION: NORMAL PERICARDIUM: NORMAL INTERPRETATION: 1. ENLARGED RIGHT VENTRICLE CAVITY 2. NORMAL LEFT VENTRICULAR CONTRACTILITY 3. NORMAL VALVES MTDD
[2019-01-14] MEDS ORDERED: XOPENEX 1.25 MG NEB PRN (08:44)
[2019-01-14] MEDS: PROTONIX IV IVP SCH ×2 (09:16→21:07)
[2019-01-14] MEDS: OLODATEROL HCL IH SCH ×3 (09:17→13:34)
[2019-01-14] MEDS: [UNRECOGNIZED DRUG - OTHER] IH SCH ×3 (09:17→13:34)
[2019-01-14] MEDS: TIOTROPIUM BR IH SCH ×3 (09:17→13:34)
[2019-01-14] MEDS: TESSALON PERLES PO SCH ×4 (10:28→20:56)
[2019-01-14] MEDS: PREDNISONE PO SCH ×2 (10:28→18:02)
[2019-01-14] MEDS: XANAX PO SCH ×4 (10:28→20:58)
[2019-01-14] MEDS: MICRO-K CAP PO SCH (10:28)
[2019-01-14] MEDS: COZAAR PO SCH ×2 (10:28→20:58)
[2019-01-14] MEDS: CARDIZEM PO SCH ×2 (10:29→20:58)
[2019-01-14] MEDS: ASPIRIN EC PO SCH (10:29)
[2019-01-14] MEDS: MORPHINE 2 MG/ML SYRINGE IVP PRN ×2 (10:30→17:46)
[2019-01-14] MEDS: K-DUR PO SCH ×2 (10:30→18:03)
[2019-01-14] MEDS: LASIX TAB PO SCH (10:30)
[2019-01-14] MEDS: LOVENOX SUBCUT SCH (10:42)
--- NOTE | 2019-01-14 10:52 | DI ---
EXAM: Single contrast upper GI History: Sternal pain while eating. Technique: Patient was given oral barium and multiple spot films of the esophagus, stomach and duode num were obtained. Findings: Limited evaluation due to patient condition as patient was unable to assume the proper pos itions or move. No obstruction of the esophagus. Small hiatal hernia. There was mucosal irregularity seen within th e distal esophagus. Esophageal spasm was present. No obvious gastric ulcerations. No gastric outle t obstruction. The duodenum was not obstructed with no obvious wall thickening. There was holdup of contrast material in the esophagus probably due to spasm. Gastroesophageal reflux was present. Impression: 1. Mucosal irregularity within the distal esophagus could be due to esophagitis or malignancy. Guilherme mmend upper endoscopy. 2. Small hiatal hernia and gastroesophageal reflux. 3. Esophageal spasm
[2019-01-15] MEDS: XOPENEX 1.25 MG NEB SCH ×2 (04:50→17:07)
[2019-01-15] MEDS: SOLU-CORTEF 100 MG IVP SCH ×3 (05:04→17:19)
[2019-01-15] MEDS: CARAFATE PO SCH ×4 (05:43→20:40)
[2019-01-15] MEDS: LASIX TAB PO SCH (05:43)
[2019-01-15] MEDS: K-DUR PO SCH ×2 (09:36→17:19)
[2019-01-15] MEDS: MICRO-K CAP PO SCH (09:36)
[2019-01-15] MEDS: PREDNISONE PO SCH ×2 (09:36→17:19)
[2019-01-15] MEDS: TESSALON PERLES PO SCH ×4 (09:36→20:40)
[2019-01-15] MEDS: ASPIRIN EC PO SCH (09:36)
[2019-01-15] MEDS: XANAX PO SCH ×4 (09:36→20:40)
[2019-01-15] MEDS: CARDIZEM PO SCH ×2 (09:37→20:41)
[2019-01-15] MEDS: [UNRECOGNIZED DRUG - OTHER] IH SCH (09:37)
[2019-01-15] MEDS: LOVENOX SUBCUT SCH (09:37)
[2019-01-15] MEDS: PROTONIX IV IVP SCH ×2 (09:37→20:40)
[2019-01-15] MEDS: OLODATEROL HCL IH SCH (09:37)
[2019-01-15] MEDS: TIOTROPIUM BR IH SCH (09:37)
[2019-01-15] MEDS: COZAAR PO SCH ×2 (09:37→20:41)
[2019-01-16] MEDS: SOLU-CORTEF 100 MG IVP SCH ×5 (01:34→23:52)
[2019-01-16] MEDS: XOPENEX 1.25 MG NEB SCH ×2 (04:45→17:08)
[2019-01-16] MEDS: MORPHINE 2 MG/ML SYRINGE IVP PRN ×2 (05:18→13:55)
[2019-01-16] MEDS: CARAFATE PO SCH ×4 (05:37→21:18)
[2019-01-16] MEDS: LASIX TAB PO SCH (05:37)
[2019-01-16] MEDS: K-DUR PO SCH ×2 (10:28→17:21)
[2019-01-16] MEDS: XANAX PO SCH ×3 (10:28→17:37)
[2019-01-16] MEDS: COZAAR PO SCH ×2 (10:29→21:18)
[2019-01-16] MEDS: CARDIZEM PO SCH ×2 (10:29→21:15)
[2019-01-16] MEDS: TESSALON PERLES PO SCH ×2 (10:29→13:55)
[2019-01-16] MEDS: ASPIRIN EC PO SCH (10:29)
[2019-01-16] MEDS: MICRO-K CAP PO SCH (10:30)
[2019-01-16] MEDS: PREDNISONE PO SCH ×2 (10:30→17:21)
[2019-01-16] MEDS: [UNRECOGNIZED DRUG - OTHER] IH SCH (10:30)
[2019-01-16] MEDS: TIOTROPIUM BR IH SCH (10:30)
[2019-01-16] MEDS: PROTONIX IV IVP SCH ×2 (10:30→21:18)
[2019-01-16] MEDS: OLODATEROL HCL IH SCH (10:30)
[2019-01-16] MEDS: LOVENOX SUBCUT SCH (10:31)
[2019-01-16] MEDS: TORADOL IVP PRN (11:27)
[2019-01-16] MEDS ORDERED: TESSALON PERLES PO PRN (14:29)
[2019-01-16] MEDS ORDERED: XANAX PO PRN (17:38)
[2019-01-17] MEDS: XOPENEX 1.25 MG NEB SCH ×2 (04:50→17:01)
[2019-01-17] MEDS: LASIX TAB PO SCH (05:50)
[2019-01-17] MEDS: CARAFATE PO SCH ×4 (05:50→21:17)
[2019-01-17] MEDS: SOLU-CORTEF 100 MG IVP SCH ×4 (05:50→23:34)
[2019-01-17] MEDS: OLODATEROL HCL IH SCH (10:08)
[2019-01-17] MEDS: PROTONIX IV IVP SCH ×2 (10:08→21:17)
[2019-01-17] MEDS: TIOTROPIUM BR IH SCH (10:08)
[2019-01-17] MEDS: [UNRECOGNIZED DRUG - OTHER] IH SCH (10:08)
[2019-01-17] MEDS: K-DUR PO SCH ×2 (10:09→17:37)
[2019-01-17] MEDS: PREDNISONE PO SCH ×2 (10:09→17:38)
[2019-01-17] MEDS: ASPIRIN EC PO SCH (10:09)
[2019-01-17] MEDS: COZAAR PO SCH ×2 (10:09→21:18)
[2019-01-17] MEDS: MICRO-K CAP PO SCH (10:09)
[2019-01-17] MEDS: CARDIZEM PO SCH ×2 (10:09→21:18)
[2019-01-17] MEDS: LOVENOX SUBCUT SCH (10:10)
--- NOTE | 2019-01-17 11:13 | PN ---
DATE OF SERVICE: 01/14/19 SUBJECTIVE: The patient was seen and examined this morning. The patient's son was present in the room. The patient still has shortness of breath on minimal exertion. She had a good day until 5 p.m. yesterday when she sat up in the chair for an hour and after she went back to bed. She was having some problem with chronic cough and some back muscle spasms. REVIEW OF SYSTEMS: CONSTITUTIONAL: No night sweats. No fatigue, malaise, lethargy. No fever or chills. HEENT: Eyes: No visual changes. No eye pain. No eye discharge. ENT: No runny nose. No epistaxis. No sinus pain. No sore throat. No odynophagia. No congestion. RESPIRATORY: Mild cough which is becoming loose. No hemoptysis. Shortness of breath on minimal exertion. Unable to say one-half of a sentence at the time. CARDIOVASCULAR: No angina symptoms. No CHF symptoms. No atypical chest pain for CAD. No palpitations. No PND. No orthopnea. GASTROINTESTINAL: No abdominal pain. No nausea or vomiting. No diarrhea or constipation. No hematemesis. No hematochezia. GENITOURINARY: No urgency. No frequency. No dysuria. No hematuria. No obstructive symptoms. No discharge. No pain. No significant abnormal bleeding. MUSCULOSKELETAL: Practically no back pain at the present time or for the last few hours. NEUROLOGICAL: No headache. No neck pain. No syncope. No seizures. No dizziness. PSYCHIATRIC: Not anxious. No depression. No suicidal thoughts. No homicidal thoughts. SKIN: No rash. No lesions. No wounds. ENDOCRINE: No unexplained weight loss. No weight gain. HEMATOLOGIC/LYMPHATIC: No anemia. No purpura. No petechiae. No prolonged or excessive bleeding. No palpable lymph nodes. PHYSICAL EXAMINATION: VITAL SIGNS: Temperature 97.3, pulse 90, respiratory rate 19, BP 119/56, pulse ox 94% on 2L. HEENT: Head normocephalic, atraumatic. Eyes: Extraocular muscles are intact. Pupils are equal, round and reactive to light and accommodation. Ears: No lesions. Nose appeared normal. Throat: No exudate or erythema. NECK: Supple. No JVD, no carotid bruit. No lymphadenopathy or thyromegaly. LUNGS: Decreased breath sounds bilaterally with mild expiratory wheeze with some muscles of respiration, intercostal muscle retractions noted. Percussion note normal. Chest symmetrical. HEART: S1, S2, no S3. No murmurs. No cyanosis or clubbing. No ascites. Pulses: Dorsalis pedis and posterior tibial pulses +1 bilaterally. ABDOMEN: Soft. Abdominal breathing noted. Nontender. Bowel sounds active. No CVA tenderness. No mass felt. EXTREMITIES: No pedal edema. Full range of motion of all extremities, equal. NEUROLOGIC: No focal deficit. Cranial nerves II through XII are grossly intact. No headache, no double vision or headache. SKIN: Not dry. Intact. Turgor - normal. LYMPHATIC: No palpable lymph nodes/no lymphedema. MUSCULOSKELETAL: Normal joints with no swelling. Muscle tone is normal. ASSESSMENT: 1. BACK MUSCLE SPASMS SEEM TO BE UNDER CONTROL FOR NOW 2. CHRONIC LUNG DISEASE, SEVERE END-STAGE 3. HYPERTENSION - CONTROLLED 4. ANEMIA - CONTROLLED 5. HYPOKALEMIA PLAN: 1. Will give potassium supplements. 2. Continue nebs, steroids, antibiotics. 3. The patient says that nebulizer treatments makes her more short of breath. Will cut down the nebulizer treatment to twice a day. I discussed with the son when he was by himself and knows the patient has end- stage COPD and her mother is suffering and wants me to talk to the patient about hospice. The geriatric case manager is going to talk to the patient about hospice. I will also talk to her this afternoon. PROGNOSIS: Poor TIME SPENT: More than 30 minutes. Plan and coordination of the patient's care discussed in the presence of nurse. RUDY
[2019-01-18] MEDS: XOPENEX 1.25 MG NEB SCH ×2 (04:30→17:54)
[2019-01-18] MEDS: CARAFATE PO SCH ×4 (05:34→21:17)
[2019-01-18] MEDS: SOLU-CORTEF 100 MG IVP SCH ×3 (05:34→17:04)
[2019-01-18] MEDS: LASIX TAB PO SCH (05:34)
--- NOTE | 2019-01-18 07:21 | PN ---
DATE OF SERVICE: 01/16/19 SUBJECTIVE: The patient was seen and examined today. The patient's condition has improved twice today. She sat down in the chair and her appetite has improved remarkably. The patient would be considered for physical therapy and swing bed. The son was present in the room. The patient is also agreeable. She declined for Hospice but the family is willing to put her through Hospice but we will see how she does in swing bed and then decided for further recommendation. REVIEW OF SYSTEMS: CONSTITUTIONAL: No night sweats. No fatigue, malaise, lethargy. No fever or chills. HEENT: Eyes: No visual changes. No eye pain. No eye discharge. ENT: No runny nose. No epistaxis. No sinus pain. No sore throat. No odynophagia. No congestion. RESPIRATORY: Mild cough, no congestion. No hemoptysis. Shortness of breath on minima exertion. CARDIOVASCULAR: No angina symptoms. No CHF symptoms. No atypical chest pain for CAD. No palpitations. No PND. No orthopnea. GASTROINTESTINAL: No abdominal pain. No nausea or vomiting. No diarrhea or constipation. No hematemesis. No hematochezia. Appetite has improved. GENITOURINARY: No urgency. No frequency. No dysuria. No hematuria. No obstructive symptoms. No discharge. No pain. No significant abnormal bleeding. MUSCULOSKELETAL: No musculoskeletal pain; no joint swelling. NEUROLOGICAL: No headache. No neck pain. No syncope. No seizures. No dizziness. PSYCHIATRIC: Not anxious. No depression. No suicidal thoughts. No homicidal thoughts. SKIN: No rash. No lesions. No wounds. ENDOCRINE: No unexplained weight loss. No weight gain. HEMATOLOGIC/LYMPHATIC: No anemia. No purpura. No petechiae. No prolonged or excessive bleeding. No palpable lymph nodes. PHYSICAL EXAMINATION: VITAL SIGNS: Temperature 97.6, pulse 80, respiratory rate 18, blood pressure 150/70 and pulse ox 98%. HEENT: Head normocephalic, atraumatic. Eyes: Extraocular muscles are intact. Pupils are equal, round and reactive to light and accommodation. Ears: No lesions. Nose appeared normal. Throat: No exudate or erythema. NECK: Supple. No JVD, no carotid bruit. No lymphadenopathy or thyromegaly. LUNGS: Decreased breath sounds with mild wheeze. Percussion note normal. Chest symmetrical. HEART: S1, S2, no S3. No murmurs. No cyanosis or clubbing. No ascites. Pulses: Dorsalis pedis and posterior tibial pulses +1 to +2 bilaterally. ABDOMEN: Soft. Nontender. Bowel sounds active. No CVA tenderness. No mass felt. EXTREMITIES: No edema. Full range of motion of all extremities, equal. NEUROLOGIC: No focal deficit. Cranial nerves II through XII are grossly intact. No headache, no double vision or headache. SKIN: Not dry. Intact. Turgor - normal. LYMPHATIC: No palpable lymph nodes/no lymphedema. MUSCULOSKELETAL: Normal joints with no swelling. Muscle tone is normal. LABS: Hgb 12.7, hct 38, WBC 10,000 normal differential, creatinine 1, BUN 28, potassium 3.4. ASSESSMENT: 1. 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 Osteoporosis 4. Abdominal aortic aneurysm descending aorta PLAN: 1. Continue IV Morphine 1-2mg every 4 hours, strongly advised to take it along with Toradol. The patient has been helped by that quite alot. 2. Appetite has improved, eating better 3. Will try for swing bed. We will take to [facility] tomorrow for that. CONDITION: Stable PROGNOSIS: Poor TIME SPENT: More than 30 minutes. Plan and coordination of the patient's care discussed in the presence of nurse. RUDY
--- NOTE | 2019-01-18 07:51 | PN ---
DATE OF SERVICE: 01/15/19 SUBJECTIVE: 83 year old white female hospitalized with intractable back pain which seems to be having resolved. Her main problem now is chronic lung disease with emphysema. She is more or less endstage. The patient is sleepy at present time. The family members are in the room and doesn't seem to be in distress. REVIEW OF SYSTEMS: CONSTITUTIONAL: No night sweats. No fatigue, malaise, lethargy. No fever or chills. HEENT: Eyes: No visual changes. No eye pain. No eye discharge. ENT: No runny nose. No epistaxis. No sinus pain. No sore throat. No odynophagia. No congestion. RESPIRATORY: No cough, no congestion. No hemoptysis. No shortness of breath. CARDIOVASCULAR: No angina symptoms. No CHF symptoms. No atypical chest pain for CAD. No palpitations. No PND. No orthopnea. GASTROINTESTINAL: No abdominal pain. No nausea or vomiting. No diarrhea or constipation. No hematemesis. No hematochezia. GENITOURINARY: No urgency. No frequency. No dysuria. No hematuria. No obstructive symptoms. No discharge. No pain. No significant abnormal bleeding. MUSCULOSKELETAL: No musculoskeletal pain; no joint swelling. NEUROLOGICAL: No headache. No neck pain. No syncope. No seizures. No dizziness. PSYCHIATRIC: Not anxious. No depression. No suicidal thoughts. No homicidal thoughts. SKIN: No rash. No lesions. No wounds. ENDOCRINE: No unexplained weight loss. No weight gain. HEMATOLOGIC/LYMPHATIC: No anemia. No purpura. No petechiae. No prolonged or excessive bleeding. No palpable lymph nodes. PHYSICAL EXAMINATION: VITAL SIGNS: Temperature 97.6, pulse 100, respiratory rate 19, blood pressure 145/72 and pulse ox 92%. HEENT: Head normocephalic, atraumatic. Eyes: Extraocular muscles are intact. Pupils are equal, round and reactive to light and accommodation. Ears: No lesions. Nose appeared normal. Throat: No exudate or erythema. NECK: Supple. No JVD, no carotid bruit. No lymphadenopathy or thyromegaly. LUNGS: Decreased breath sounds with mild wheeze. Clear to auscultation. Percussion note normal. Chest symmetrical. HEART: S1, S2, no S3. No murmurs. No cyanosis or clubbing. No ascites. Pulses: Dorsalis pedis and posterior tibial pulses +1 to +2 bilaterally. ABDOMEN: Soft. Nontender. Bowel sounds active. No CVA tenderness. No mass felt. EXTREMITIES: No edema. Full range of motion of all extremities, equal. NEUROLOGIC: No focal deficit. Cranial nerves II through XII are grossly intact. No headache, no double vision or headache. SKIN: Not dry. Intact. Turgor - normal. LYMPHATIC: No palpable lymph nodes/no lymphedema. MUSCULOSKELETAL: Normal joints with no swelling. Muscle tone is normal. LABS: Hgb 12, hct 36, WBC 9,800 normal differential, creatinine 1, BUN 25, potassium 3.9, GFR 51cc per minute ASSESSMENT: 1. Back pain seems to be under control with Morphine Sulfate and Toradol 2. Telemetry shows sinus rhythm with rate of 100 per minute. 3. Respiratory status seems to be a problem which is very critical in a way. Minimal exertion she gets out of breath. She is on steroids, NEBS, inhalers. 4. Blood pressure is well controlled with medications. 5. Her cardiac functions are normal with echocardiogram. Normal ejection fraction. 6. The patient has endstage COPD. The family realizes especially the son and also realizes the son and other family members are all on board for Hospice which will help the patient. The patient has declined to go to the long-term. All discussed today with family members. The patient is still not convinced about Hospice but she is worried about the cost of medications, cost of cared which again should be in her favor if she goes Hospice. The patient has endstage COPD. CONDITION: Stable PROGNOSIS: Poor TIME SPENT: More than 30 minutes. Plan and coordination of the patient's care discussed in the presence of nurse. RUDY
[2019-01-18] MEDS: LOVENOX SUBCUT SCH (09:21)
[2019-01-18] MEDS: PREDNISONE PO SCH ×2 (09:24→17:04)
[2019-01-18] MEDS: MICRO-K CAP PO SCH (09:24)
[2019-01-18] MEDS: PROTONIX IV IVP SCH ×2 (09:24→21:16)
[2019-01-18] MEDS: COZAAR PO SCH ×2 (09:25→21:17)
[2019-01-18] MEDS: K-DUR PO SCH (09:25)
[2019-01-18] MEDS: ASPIRIN EC PO SCH (09:25)
[2019-01-18] MEDS: CARDIZEM PO SCH ×2 (09:26→21:17)
[2019-01-18] MEDS: [UNRECOGNIZED DRUG - OTHER] IH SCH (12:11)
[2019-01-18] MEDS: OLODATEROL HCL IH SCH (12:11)
[2019-01-18] MEDS: TIOTROPIUM BR IH SCH (12:11)
[2019-01-19] MEDS: SOLU-CORTEF 100 MG IVP SCH ×3 (00:25→12:22)
[2019-01-19] MEDS: XOPENEX 1.25 MG NEB SCH (04:30)
[2019-01-19] MEDS: LASIX TAB PO SCH (05:49)
[2019-01-19] MEDS: CARAFATE PO SCH ×2 (05:49→10:51)
[2019-01-19] MEDS: MICRO-K CAP PO SCH (08:44)
[2019-01-19] MEDS: K-DUR PO SCH (08:44)
[2019-01-19] MEDS: CARDIZEM PO SCH (08:44)
[2019-01-19] MEDS: PROTONIX IV IVP SCH (08:44)
[2019-01-19] MEDS: ASPIRIN EC PO SCH (08:44)
[2019-01-19] MEDS: COZAAR PO SCH (08:44)
[2019-01-19] MEDS: LOVENOX SUBCUT SCH (08:45)
[2019-01-19] MEDS: PREDNISONE PO SCH (08:45)
[2019-01-19] MEDS: OLODATEROL HCL IH SCH (08:57)
[2019-01-19] MEDS: TIOTROPIUM BR IH SCH (08:57)
[2019-01-19] MEDS: [UNRECOGNIZED DRUG - OTHER] IH SCH (08:57)
[2019-01-19] MEDS: TORADOL IVP PRN (12:22)
[2019-01-19 14:22] VITALS: BP 133/65; TEMP 98
[2019-01-19] MEDS ORDERED: MYLANTA SUSP PO PRN (14:30)
--- NOTE | 2019-01-19 15:16 | RS.PTINEVL ---
Subjective - Patient information Date of Evaluation: 01/19/19 Date of Arrival on Unit: 01/09/19 Admitted From:: Home Diagnosis: back pain, chronic lung disease Usual Living Arrangement: Alone Living Arrangement Comments: family is very supportive Home Environment: House, Stairs (few), Rail Medical History: Hypertension, COPD Medical History Comments:: chronic fx T8 and L3, thoracic aortic aneurysm, back pain LATEX ALLERGY?: No Surgical History: Cholecystectomy, Hysterectomy, Surgical History Comments:: hernia repair Medications: see chart Subjective Information/ Patient Comments:: pt states that she is ready to do PT. She states she sat up in chair for a long time yesterday. - Level of function Prior to this admission, the patient could do the following:: Independent Selfcare, Independent ADL's, Independent Ambulation Current Level of Function: Partially Dependent Current Equipment Used at Home: Home oxygen, walkers, raised toilet seat Pain Assessement - Location low back pain Description: Aching Pain Alleviating Factors: Medication Effects of Pain: pt did not rate pain Interventions - Objective Patient Orientation: Person, Place, Time Current Interventions: Oxygen, Telemetry Observation: pt on 2 liters of O2, pt with bruising noted to BUE as well as chest. non pitting edema BLE Range of Motion - ROM Right Upper Extremity AROM: WFL's Left Upper Extremity AROM: WFL's Right Lower Extremity AROM: WFL's Left Lower Extremity AROM: WFL's Muscle Strength - Muscle Strength Right Upper Extremity Strength: Mild Weakness (BUE grossly 4-/5) Left Upper Extremity Strength: Mild Weakness (BUE grossly 4-/5) Right Lower Extremity Strength: Mild Weakness (hip flex 3+/5, knee flex/ext 4-/5 , ankle DF/PF 4-/5) Left Lower Extremity Strength: Mild Weakness (hip flex 3+/5, knee flex/ext 4-/5 , ankle DF/PF 4-/5) Sensation - Sensation Right Upper Extremity Sensation: Intact/Normal Left Upper Extremity Sensation: Intact/Normal Right Lower Extremity Sensation: Impaired Left Lower Extremity Sensation: Impaired Comments: N/T occasionally BLE Palpation Palpation Findings: Tenderness Comments:: B UE due to bruising Balance - Sitting Balance and Reactions Static Sitting Balance: Fair Dynamic Sitting Balance: Fair - Standing Balance and Reactions Static Standing Balance: Poor Dynamic Standing Balance: Poor Standing Equilibrium Reactions: Delayed Left, Delayed Right Standing Protective Reactions: Delayed Left, Delayed Right Functional Mobility - Bed Mobility Rolling R/L: Min Assist Supine to Sit: Mod Assist, 1 person assist Sit to Supine: Mod Assist, 1 person assist - Transfers Sit to Stand: Min Assist, Mod Assist, 2 person assist Stand to Sit: Min Assist, Mod Assist, 2 person assist Stand Pivot Transfers: Mod Assist, 2 person assist - Safety Awareness Safety Awareness: Poor JAMAL INDEX SCORE: n/a Ambulation - Ambulation Assistive Device Used: Rolling Walker Orthotic/Prosthetic Device: No Distance: 15ft Assistance needed with Ambulation: Min Assist, 2 person assist Quality of Ambulation: with O2, with significantly flexed posture, decreased step length Gait Deviations: Forward posture, Short stride Ambulation Comments: pt amb with decreased step length, flexed posture, SOA with min exertion. Factors Affecting Ambulation: Decreased Balance, Breathing/O2 Saturation, Weakness, Decreased ROM, Dizziness, Decreased Safety, Limited Endurance Treatment time - Units charged Gait trainin - Time with patient Length of Evaluation: 18 Total treatment time: 32 Patient Education - Education Patient Education: Home Exercise Program, Education of Plan of Care Teaching Recipient: Patient Teaching Methods: Discussion (discussion regarding POC and importance to participate with PT) Assessment - Assessment Problem List:: Decreased level of function, Requires training/education, Decreased safety/Risk of falls, Weakness, Pain limits previous level of function Rehab Potential: Fair Further Therapy Indicated?: Yes Candidate for Swing Bed for Therapy Services?: Feel pt may benefit from swing bed if pt is agreeable to participate Evaluation Complexity: HISTORY: Medium (COPD, back pain, HTN, chronic fx T8 and L3), EXAM OF BODY SYSTEMS: Medium (age, SOA, back pain, muscle weakness, gait and transfers), CLINICAL PRESENTATION: Medium, CLINICAL DECISION MAKING: Medium Short Term Goals GOAL #1: pt able to perform rolling, bridging with verbal cues Goal to be met by: 01/21/19 GOAL #2: Transfer sup to/from sit with CGA to min x 1 Goal to be met by: 01/21/19 GOAL #3: sit to/from stand CGA to min x 1 Goal to be met by: 01/21/19 GOAL #4: pt amb with rwx 50ft with min x 1 Goal to be met by: 01/21/19 Child Center Assistant Goals GOAL #1: pt transfer sup to/from sit to/from stand CGA to SBA Goal to be met by: 01/26/19 GOAL #2: pt amb with rwx with CGA functional household distances. Goal to be met by: 01/26/19 GOAL #3: pt demonstrate improved dyn stand balance fair Goal to be met by: 01/26/19 Plan Plan of Care: Therapeutic EX, Therapeutic Activity Other:: gait training Frequency of Treatment: 1-2 X day, as tolerated Duration of Treatment: 1 Week Anticipated Discharge Destination: Home Treatment Diagnosis (ICD 10 Codes): M54.5 LBP. M62.81 general weakness. R 26.81 balance impaired. R26.2 difficulty walking Has the Physician been added for Co-signature?: Yes
[2019-01-19] MEDS ORDERED: K-DUR PO SCH (17:30)
--- NOTE | 2019-01-20 09:45 | PN ---
DATE OF SERVICE: 01/17/19 - SEEN AND EXAMINED SUBJECTIVE: This 83-year-old white female hospitalized with back pain with back muscle spasm mainly right-sided. Also has chronic compression fractures with severe osteoporosis contributing toward the pain. The patient's pain seems to be more or less well-controlled. She is up and about today some with improvement in appetite. The patient is being considered for swing bed because she seems to be ready for Physical Therapy. The patient has severe chronic lung disease that seems to be the main problem. The patient's COPD is end-stage. She is on maximum dose of steroids, nebs, bronchodilators and she is put on Daliresp. PHYSICAL EXAMINATION: VITAL SIGNS: Temperature 98.3, pulse 89, respiratory rate 20, BP 160/78, pulse ox 99% on 2L. HEENT: Head normocephalic, atraumatic. Eyes: Extraocular muscles are intact. Pupils are equal, round and reactive to light and accommodation. Ears: No lesions. Nose appeared normal. Throat: No exudate or erythema. NECK: Supple. No JVD, no carotid bruit. No lymphadenopathy or thyromegaly. LUNGS: Decreased breath sounds but clear to auscultation. Percussion note normal. Chest symmetrical. HEART: S1, S2, no S3. No murmurs. No cyanosis or clubbing. No ascites. Pulses: Dorsalis pedis and posterior tibial pulses +1 to +2 bilaterally. ABDOMEN: Soft. Nontender. Bowel sounds active. No CVA tenderness. No mass felt. EXTREMITIES: No edema. Full range of motion of all extremities, equal. NEUROLOGIC: No focal deficit. Cranial nerves II through XII are grossly intact. No headache, no double vision or headache. SKIN: Not dry. Intact. Turgor - normal. LYMPHATIC: No palpable lymph nodes/no lymphedema. MUSCULOSKELETAL: Normal joints with no swelling. Muscle tone is normal. LABS: Hemoglobin 11.7, hematocrit 36, WBC 9,600, normal differential. Creatinine 1, BUN 32, potassium 3.7. ASSESSMENT: 1. Severe end-stage chronic lung disease. 2. 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 3. Hypertension. 4. Anemia. PLAN: 1. Continue steroids, nebs. 2. Encourage the patient to eat. The patient should be up and about sitting in the chair going to the bathroom, already started that for the past couple of days. The patient is to be considered for swing bed. TIME SPENT: More than 30 minutes. Plan and coordination of the patient's care discussed in the presence of nurse. RUDY
--- NOTE | 2019-01-20 09:51 | PN ---
DATE OF SERVICE: 01/18/19 SUBJECTIVE: 83-year-old white female hospitalized with back pain which seems to be under control. The patient is doing a little better, eating better. The patient is being evaluated for swing bed for physical therapy. REVIEW OF SYSTEMS: CONSTITUTIONAL: No night sweats. No fatigue, malaise, lethargy. No fever or chills. HEENT: Eyes: No visual changes. No eye pain. No eye discharge. ENT: No runny nose. No epistaxis. No sinus pain. No sore throat. No odynophagia. No congestion. RESPIRATORY: Mild cough. No hemoptysis. Shortness of breath with minimal exertion. CARDIOVASCULAR: No angina symptoms. No CHF symptoms. No atypical chest pain for CAD. No palpitations. No PND. No orthopnea. GASTROINTESTINAL: No abdominal pain. No nausea or vomiting. No diarrhea or constipation. No hematemesis. No hematochezia. GENITOURINARY: No urgency. No frequency. No dysuria. No hematuria. No obstructive symptoms. No discharge. No pain. No significant abnormal bleeding. MUSCULOSKELETAL: No musculoskeletal pain; no joint swelling. NEUROLOGICAL: No headache. No neck pain. No syncope. No seizures. No dizziness. PSYCHIATRIC: Not anxious. No depression. No suicidal thoughts. No homicidal thoughts. SKIN: No rash. No lesions. No wounds. ENDOCRINE: No unexplained weight loss. No weight gain. HEMATOLOGIC/LYMPHATIC: No anemia. No purpura. No petechiae. No prolonged or excessive bleeding. No palpable lymph nodes. PHYSICAL EXAMINATION: VITAL SIGNS: Temperature 97.5, pulse 80, respiratory rate 18, BP 140/70, pulse ox 92%. HEENT: Head normocephalic, atraumatic. Eyes: Extraocular muscles are intact. Pupils are equal, round and reactive to light and accommodation. Ears: No lesions. Nose appeared normal. Throat: No exudate or erythema. NECK: Supple. No JVD, no carotid bruit. No lymphadenopathy or thyromegaly. LUNGS: Decreased breath sounds but clear to auscultation. Percussion note normal. Chest symmetrical. HEART: S1, S2, no S3. No murmurs. No cyanosis or clubbing. No ascites. Pulses: Dorsalis pedis and posterior tibial pulses +1 to +2 bilaterally. ABDOMEN: Soft. Nontender. Bowel sounds active. No CVA tenderness. No mass felt. EXTREMITIES: No edema. Full range of motion of all extremities, equal. NEUROLOGIC: No focal deficit. Cranial nerves II through XII are grossly intact. No headache, no double vision or headache. SKIN: Not dry. Intact. Turgor - normal. LYMPHATIC: No palpable lymph nodes/no lymphedema. MUSCULOSKELETAL: Normal joints with no swelling. Muscle tone is normal. LABS: Hemoglobin 12.5, hematocrit 37, WBC 11,600, normal differential. Creatinine 0.8 , BUN 31, potassium 3.4. ASSESSMENT: Severe DJD with emphysema. Back problems seem to be under control, still having back muscle spasms. The patient has chronic compression fractures, talked about it. The patient is willing to undergo physical therapy and possibility of swing bed. TIME SPENT: More than 30 minutes. Plan and coordination of the patient's care discussed in the presence of nurse. RUDY
--- NOTE | 2019-01-20 10:11 | DS ---
DATE OF SERVICE: 01/19/19 (DISCHARGED FROM ACUTE) FINAL DIAGNOSIS: 1. SEVERE BACK PAIN INVOLVING THE RIGHT LUMBAR SACRAL AND THORACIC AREA SECONDARY TO CHRONIC COMPRESSION FRACTURES OF THE SPINE, SEVERE OSTEOPOROSIS. 2. SEVERE END-STAGE CHRONIC LUNG DISEASE WITH CHRONIC BRONCHITIS. 3. HYPERTENSION. 4. GENERALIZED OSTEOPOROSIS. 5. MILD ANEMIA. 6. GENERALIZED ANXIETY SYNDROME. DISCHARGE INSTRUCTIONS: Discharge to Swing Bed. MEDICATIONS AT TIME OF TRANSFER TO SWING BED: Continue Morphine Continue Toradol Lasix p.o. daily. Prednisone 5 mg twice a day. Diltiazem 90 mg p.o. twice a day. ProAir HFA p.r.n. Solu-Cortef 100 mg q.6. Xopenex treatment. Cozaar 50 mg twice a day. Protonix IV 40 mg b.i.d. for reflux. Potassium supplements. Tessalon Perle 200 q.i.d. for pain . Coated aspirin one a day. Xanax 0.25 q.i.d. for anxiety. NEW PRESCRIPTIONS: N/A DISCONTINUED MEDICATIONS: Furosemide 20 mg p.o. daily\ Tiotropium/Olodaterol (Stiolto Respimat) 4 gm IH daily Carboxymethylcellulose two drops each eye as directed Prednisone 5 mg p.o. b.i.d. Potassium Chloride - Klor-Con 10 mEq p.o. daily Diltiazem (Cardizem) 60 mg p.o. b.i.d. Albuterol one puff IH q.6h p.r.n. DIET INSTRUCTIONS: Regular diet ACTIVITY: PT/OT, as patient tolerates. SMOKING: Former smoker DISEASE SPECIFIC EDUCATION: Admission to swing bed HOSPITAL COURSE: 83-year-old white female was hospitalized with severe back pain, which was rated 10 on scale of 1 to 10. The patient was given initially Dilaudid and Toradol and later on switched to Morphine Sulfate 1 to 2 mg q.4. The patient's condition improved as far as back is concerned. Initial thought about having this pain coming from the dissecting aneurysm which was ruled out. The patient has stable descending aortic aneurysm for which she doesn't want anything to be done. The patient is DNR. Family in fact entertained hospice consult for end stage COPD but the patient declined. The patient's pain was brought under control with medications mentioned above. The patient started eating somewhat better, started sitting up in the chair. She is a good candidate for physical therapy with decline in her function during the stay in the hospital. The patient was advised swing bed and physical therapy to which she agreed and the patient was transferred to swing bed today. Cardiovascular status is stable. Echo showed normal LV contractility. There is no CHF. She had some fluid retention for which she is getting Lasix because of her steroids. The patient's prognosis is poor. Condition is stable. I tried to rehabilitate her with physical therapy to see how far she can go with it. The patient is stubborn and difficult. She has done good with Xanax that has cut her anxiety to the point where she is manageable. Appetite seems to have improved. Condition at time of discharge to swing bed is stable. TIME SPENT: More than 60 minutes. RUDY
--- NOTE | 2019-01-20 10:14 | PN ---
CODING FOR BILLING 01/09/19 ADMISSION DAY LEVEL 5 01/10/19 INTERMEDIATE 01/11/19 INTERMEDIATE 01/12/19 INTERMEDIATE 01/13/19 INTERMEDIATE 01/14/19 INTERMEDIATE 01/15/19 INTERMEDIATE 01/16/19 INTERMEDIATE 01/17/19 INTERMEDIATE 01/18/19 INTERMEDIATE 01/19/19 DISCHARGE FROM ACUTE [facility]
== END 2019-01-19 15:44 | disposition swing bed (61) | DRG 551 ==
LOC: ED 09:11 → SCU 13:47 → OBSVTOIN 13:47
PROVIDERS: ADMIT Internal Medicine; ATTEND Internal Medicine
DX: M54.9 Dorsalgia, unspecified (principal); J18.9 Pneumonia, unspecified organism; M48.50XA Collapsed vertebra, not elsewhere classified, site unspecified, initial encounter for fracture; J44.1 Chronic obstructive pulmonary disease with (acute) exacerbation; M54.6 Pain in thoracic spine; M81.0 Age-related osteoporosis without current pathological fracture; M62.830 Muscle spasm of back; M94.0 Chondrocostal junction syndrome [Tietze]; M47.9 Spondylosis, unspecified; I71.2 Thoracic aortic aneurysm, without rupture; I10 Essential (primary) hypertension; J42 Unspecified chronic bronchitis; D64.9 Anemia, unspecified; F41.1 Generalized anxiety disorder; L40.9 Psoriasis, unspecified; E78.5 Hyperlipidemia, unspecified; E87.6 Hypokalemia; R00.0 Tachycardia, unspecified
CPT/HCPCS: 36415; 80053; 81001; 82550; 82803; 83605; 84145; 84484; 85025; 85379; 85610; 87040; 93005; 93010; 94640; 96374; 96375; 96376; 99284

== ENCOUNTER 2019-01-19 16:23 | Inpatient (IN) ==
[2019-01-19] MEDS ORDERED: PROAIR HFA IH PRN (16:45)
[2019-01-19] MEDS ORDERED: MYLANTA SUSP ONE (16:47)
[2019-01-19] MEDS ORDERED: TESSALON PERLES PO PRN (16:52)
[2019-01-19] MEDS ORDERED: TORADOL IVP PRN (16:54)
[2019-01-19] MEDS ORDERED: XOPENEX 1.25 MG NEB PRN (16:55)
[2019-01-19] MEDS ORDERED: MORPHINE 2 MG/ML SYRINGE IVP PRN (16:56)
[2019-01-19] MEDS ORDERED: ARTIFICIAL TEARS OPTH SOL OP PRN (16:58)
[2019-01-19] MEDS: CARAFATE PO SCH ×2 (17:33→20:44)
[2019-01-19] MEDS: PREDNISONE PO SCH (17:34)
[2019-01-19] MEDS: K-DUR PO SCH (17:34)
[2019-01-19] MEDS: XOPENEX 1.25 MG NEB SCH (17:48)
[2019-01-19] MEDS ORDERED: SOLU-CORTEF 100 MG ONE ×2 (19:13→23:19)
[2019-01-19] MEDS: SOLU-CORTEF 250 MG IVP SCH ×3 (19:16→23:22)
[2019-01-19 19:53] VITALS: BMI 22.6
[2019-01-19] MEDS: PROTONIX IV IVP SCH (20:45)
[2019-01-19] MEDS: CARDIZEM PO SCH (20:45)
[2019-01-19] MEDS: COZAAR PO SCH (20:45)
[2019-01-20] MEDS: XOPENEX 1.25 MG NEB SCH ×2 (04:45→16:30)
[2019-01-20] MEDS ORDERED: SOLU-CORTEF 100 MG ONE (05:25)
[2019-01-20] MEDS: LASIX TAB PO SCH (05:52)
[2019-01-20] MEDS: CARAFATE PO SCH ×4 (05:52→21:14)
[2019-01-20] MEDS: SOLU-CORTEF 250 MG IVP SCH (05:52)
[2019-01-20] MEDS: ASPIRIN EC PO SCH (08:32)
[2019-01-20] MEDS: PREDNISONE PO SCH ×3 (08:33→09:28)
[2019-01-20] MEDS: CARDIZEM PO SCH ×2 (08:33→21:13)
[2019-01-20] MEDS: COZAAR PO SCH ×2 (08:33→21:13)
[2019-01-20] MEDS: PROTONIX IV IVP SCH ×2 (08:34→21:11)
[2019-01-20] MEDS: K-DUR PO SCH ×3 (08:36→16:45)
[2019-01-20] MEDS: MYLANTA SUSP PO PRN ×3 (08:44→16:44)
[2019-01-20] MEDS: LOVENOX SUBCUT SCH (08:47)
[2019-01-20] MEDS ORDERED: POTASSIUM CHL 10% ORAL SOL PO SCH (09:00)
[2019-01-20] MEDS: TIOTROPIUM BR IH SCH (09:15)
[2019-01-20] MEDS: [UNRECOGNIZED DRUG - OTHER] IH SCH (09:15)
[2019-01-20] MEDS: OLODATEROL HCL IH SCH (09:15)
--- NOTE | 2019-01-20 10:19 | CM.DICTOOL ---
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 BETTENCOURT HYSTERECTOMY HERNIORRHAPHY C-SECTIONS X2 CHOLECYSTECTOMY FORMER HEAVY SMOKER LAST VITALS Temp Pulse Resp BP Pulse Ox 97.8 F 91 H 18 133/69 92 L 01/20/19 05:49 01/20/19 05:49 01/20/19 05:49 01/20/19 05:49 01/20/19 05:49 CONTINUE THESE MEDICATIONS WHILE IN SWING BED PROGRAM Al Hydroxide/Mg Hydroxide (Mylanta Susp) 30 ml PO TID PRN PRN Reason: Heartburn Albuterol Sulfate (Proair Hfa) 1 puff IH Q6H PRN PRN Reason: SOA Alprazolam (Xanax) 0.25 mg PO QID PRN PRN Reason: Anxiety Artificial Tears (Artificial Tears Opth Cony) 2 drop OP Q2H PRN PRN Reason: Dry Eye Aspirin (Aspirin Ec) 81 mg PO DAILYWM RAMILA Benzonatate (Tessalon Perles) 200 mg PO QID PRN PRN Reason: Cough Diltiazem HCl (Cardizem) 90 mg PO BID [facility] Last Admin: 01/19/19 20:45 Dose: 90 mg Enoxaparin Sodium (Lovenox) 30 mg SUBCUT DAILY [facility] Furosemide (Lasix Tab) 20 mg PO QDAC [facility] Last Admin: 01/20/19 05:52 Dose: 20 mg Hydrocortisone Sodium Succinate (Solu-Cortef 250 Mg) 100 mg IVP Q6HR [facility] Last Admin: 01/20/19 05:52 Dose: Not Given Ketorolac Tromethamine (Toradol) 30 mg IVP Q6H PRN PRN Reason: Pain Levalbuterol HCl (Xopenex 1.25 Mg) 1 vial NEB RTBID PRN PRN Reason: Wheezing Levalbuterol HCl (Xopenex 1.25 Mg) 1 vial NEB RTBID [facility] Last Admin: 01/20/19 04:45 Dose: 1 vial Losartan Potassium (Cozaar) 50 mg PO BID [facility] Last Admin: 01/19/19 20:45 Dose: 50 mg Morphine Sulfate (Morphine 2 Mg/Ml Syringe) 1 - 2 mg IVP Q4H PRN PRN Reason: Pain Non-Formulary Medication (Tiotropium Br/Olodaterol Hcl [Stiolto Respimat Inhal [place]]) 4 gm IH DAILY [facility] Pantoprazole Sodium (Protonix Iv) 40 mg IVP BID [facility] Last Admin: 01/19/19 20:45 Dose: 40 mg Potassium Chloride (K-Dur) 40 meq PO BIDWM [facility] Last Admin: 01/19/19 17:34 Dose: 40 meq Prednisone (Prednisone) 5 mg PO BIDWM [facility] Last Admin: 01/19/19 17:34 Dose: 5 mg Sodium Chloride (Saline Flush) 1 syr IVF Q8HR [facility] Last Admin: 01/20/19 05:52 Dose: 1 syr Sucralfate (Carafate) 1 gm PO ACHS [facility] Last Admin: 01/20/19 05:52 Dose: 1 gm ALLERGIES cephalexin monohydrate [From Keflex] Allergy (Verified 01/09/19 09:23) codeine Adverse Reaction (Verified 01/09/19 09:23) diphenhydramine [From Benadryl] Adverse Reaction (Verified 01/09/19 09:23) latex Adverse Reaction (Verified 01/09/19 09:23) meperidine [From Demerol] Adverse Reaction (Verified 01/09/19 09:23) NEW PRESCRIPTIONS: PATIENT WILL BE CONTINUED ON THE SAME MEDICATIONS IN SWING BED SMOKING: FORMER SMOKER NONE NOW DISEASE SPECIFIC EDUCATION: COMPRESSION FRACTURES INTRACTIBLE BACK PAIN MUSCLE SPASMS ESOPHAGITIS LOW POTASSIUM COPD SWING BED PROGRAM PHYSICAL AND OCCUPATIONAL THERAPY MEDICATION CHANGES LAB REVIEW: 01/20/19 05:00 01/20/19 05:00 01/20/19 05:00: Sodium 135.8, Potassium 3.34 L, Chloride 96.7 L, Carbon Dioxide 36.4 H, Anion Gap 6.04, BUN 28.6 H, Creatinine 0.99, Estimated GFR (MDRD) 53.00 , BUN/Creatinine Ratio 28.88, Glucose 116.2 H, Calcium 9.64, Total Bilirubin 0.55, AST 51.5 H, ALT 82.7 H, Alkaline Phosphatase 51.5 L, Total Protein 4.89 L , Albumin 2.68 L, Globulin 2.21, Albumin/Globulin Ratio 1.21 01/20/19 05:00: WBC 11.16 H, RBC 3.80 L, Hgb 11.7 L, Hct 34.7 L, MCV 91.3, MCH 30.8, MCHC 33.7, RDW Coeff of Nick 12.2, Plt Count 201, Immature Gran % (Auto) 1.4, Neut % (Auto) 88.3, Lymph % (Auto) 5.6 L, [place] % (Auto) 4.6, Eos % (Auto) 0.0, Baso % (Auto) 0.1, Immature Gran # (Auto) 0.2, Neut # (Auto) 9.9 H, Lymph # (Auto) 0.6, [place] # (Auto) 0.5, Eos # (Auto) 0.0, Baso # (Auto) 0.0 PLAN: DISCHARGE FROM ACUTE TO BE ADMITTED TO SWING BED PROGRAM DIAGNOSIS FUNCTIONAL DECLINE SECONDARY TO INTRACTABLE BACK PAIN AND SEVERE COPD. PATIENT WOULD LIKE TO GAIN STRENGTH AND STAMINA HER RESPIRATORY STATUS IMPROVES SO THAT SHE WILL BE ABLE TO RETURN TO HER HOME AT DISCHARGE. CONTINUE SAME MEDICATIONS AND ORDERS PHYSICAL THERAPY AND OCCUPATIONAL THERAPY TO EVALUATE FOR SERVICES SUMMARY THE PATIENT IS ALERT AND ORIENTED X3. SHE CURRENTLY RESIDES AT HOME ALONE. HER SON IS VERY SUPPORTIVE AND HAS BEEN STAYING WITH HER TO ASSIST PRIOR TO THIS HOSPITALIZATION. HE INTENDS TO STAY WITH HER UNTIL SHE IS ABLE TO STAY ALONE AFTER DISCHARGE FROM SWING BED ADMISSION. SHE IS AGREEABLE FOR HOME HEALTH SERVICES WELL. SHE DOES DESIRE TO RETURN TO HER HOME AFTER DISCHARGE. SHE HAS HOME OXYGEN, ROLLING WALKER AND ELEVATED COMMODE SEAT FOR USE AT HOME. THE SKIN TURGOR IS FRAGILE. MS. FLETCHER HAS SEVERAL PATCHES OF PSORIASIS ON HER LEG, BUTTOX AND BACK. SHE RECEIVES TREATMENT FROM DR. BETTENCOURT. SHE HAS SEVERAL AREAS OF BRUISING IN VARIOUS STAGES OF HEALING IN MANY AREAS WELL. HER SKIN IS THIN AND HAS A TRANSLUCENT APPEARANCE. SHE HAS MILD EDEMA OF HER LOWER EXTREMITIES MORE NOTICEABLE TO THE LEFT LOWER EXTREMITY. HER HYDRATION STATUS IS GOOD. HOWEVER HER NUTRITIONAL STATUS IS LACKING EVIDENCED BY HER LOW PROTEIN AND ALBUMIN LAB VALUES. THE [employer] SALES CONSULTANT WILL CONTINUE TO BE ON CONSULTATION TO MAKE RECOMMENDATIONS TO IMPROVE HER APPETITE DURING HER STAY IN THE SWING BED PROGRAM. CURRENT CODE STATUS DO NOT INTUBATE, CPR ONLY JAIMIE WOODALL M.D.
--- NOTE | 2019-01-20 10:22 | PN ---
DATE OF SERVICE: 01/20/19 SUBJECTIVE: The patient is now in swing bed for physical therapy. The patient has been in the hospital with back pain and she has been more or less in the bed. The patient is alot better, talking better without being short of breath. She gets short of breath on minimal exertion. The son is in the room. REVIEW OF SYSTEMS: CONSTITUTIONAL: No night sweats. No fatigue, malaise, lethargy. No fever or chills. HEENT: Eyes: No visual changes. No eye pain. No eye discharge. ENT: No runny nose. No epistaxis. No sinus pain. No sore throat. No odynophagia. No congestion. RESPIRATORY: Mild cough, no congestion. No hemoptysis. Shortness of breath on minimal exertion. CARDIOVASCULAR: No angina symptoms. No CHF symptoms. No atypical chest pain for CAD. No palpitations. No PND. No orthopnea. GASTROINTESTINAL: No abdominal pain. No nausea or vomiting. No diarrhea or constipation. No hematemesis. No hematochezia. GENITOURINARY: No urgency. No frequency. No dysuria. No hematuria. No obstructive symptoms. No discharge. No pain. No significant abnormal bleeding. MUSCULOSKELETAL: No musculoskeletal pain; no joint swelling. NEUROLOGICAL: No headache. No neck pain. No syncope. No seizures. No dizziness. PSYCHIATRIC: Not anxious. No depression. No suicidal thoughts. No homicidal thoughts. SKIN: No rash. No lesions. No wounds. ENDOCRINE: No unexplained weight loss. No weight gain. HEMATOLOGIC/LYMPHATIC: No anemia. No purpura. No petechiae. No prolonged or excessive bleeding. No palpable lymph nodes. PHYSICAL EXAMINATION: VITAL SIGNS: Temperature 97.8, pulse 90, respiratory rate 18, blood pressure 133 /70, pulse ox 92%. HEENT: Head normocephalic, atraumatic. Eyes: Extraocular muscles are intact. Pupils are equal, round and reactive to light and accommodation. Ears: No lesions. Nose appeared normal. Throat: No exudate or erythema. NECK: Supple. No JVD, no carotid bruit. No lymphadenopathy or thyromegaly. LUNGS: Decreased breath sounds but clear to auscultation. Percussion note normal. Chest symmetrical. HEART: S1, S2, no S3. No murmurs. No cyanosis or clubbing. No ascites. Pulses: Dorsalis pedis and posterior tibial pulses +1 to +2 bilaterally. ABDOMEN: Soft. Nontender. Bowel sounds active. No CVA tenderness. No mass felt. EXTREMITIES: No edema. Full range of motion of all extremities, equal. NEUROLOGIC: No focal deficit. Cranial nerves II through XII are grossly intact. No headache, no double vision or headache. SKIN: Not dry. Intact. Turgor - normal. LYMPHATIC: No palpable lymph nodes/no lymphedema. MUSCULOSKELETAL: Normal joints with no swelling. Muscle tone is normal. LABS: Hemoglobin 11.7, hematocrit 34, WBC 11,000, normal differential. Creatinine 0.9 , BUN 28, potassium 3.3. ASSESSMENT: 1. SEVERE CHRONIC LUNG DISEASE, END-STAGE 2. BACK PAIN FROM CHRONIC COMPRESSION FRACTURES, BACK MUSCLE SPASM WITH GENERALIZED OSTEOPOROSIS 3. HYPERTENSION 4. CHRONIC ANEMIA 5. HYPOKALEMIA PLAN: 1. Get the patient up, start physical therapy. The patient is medically stable to undergo physical therapy. The patient may later on need pulmonary rehab in case she improves. The patient's attitude is better. ADDENDUM: The patient had upper GI with barium swallow done and mucosal irregularity within the distal esophagus was seen probably indicating esophagitis or possibility of malignancy. Recommended EGD but the patient is not medically stable to undergo EGD at the present time so she declined. The son was explained about the finding. The patient was explained about this finding. The patient has small hiatal hernia with esophageal spasm. The patient is already on Protonix. Pain around epigastric area and pain swallowing is a lot better. She is eating better. No difficulty swallowing any more. Now the patient has declined EGD and also the patient is not medically stable to undergo EGD anyway. CONDITION: Stable TIME SPENT: More than 30 minutes. Plan and coordination of the patient's care discussed in the presence of nurse. MTDD
[2019-01-20] MEDS: SOLU-CORTEF 100 MG IVP SCH ×2 (12:53→17:11)
--- NOTE | 2019-01-20 14:25 | RS.PTINEVL ---
Subjective - Patient information Date of Evaluation: 01/20/19 Date of Arrival on Unit: 01/19/19 Admitted From:: Facility Transfer (transferred to swing bed from inpatient) Diagnosis: intractable back pain, severe COPD Usual Living Arrangement: Alone Living Arrangement Comments: family is very supportive, son has been staying with pt recently Home Environment: House, Stairs (few), Rail Medical History: COPD, Arthritis Medical History Comments:: compression fx T8, L3, GERD, hypokalemia, aneurysm thoracic aorta, abdominal aortic aneurysm, psoriasis Surgical History: Cholecystectomy, Hysterectomy, Surgical History Comments:: hernia repair Medications: see chart Subjective Information/ Patient Comments:: pt states that she is supposed to get sponge bath this am. States she would like to sit up in chair after walking. - Level of function Prior to this admission, the patient could do the following:: Independent Selfcare, Independent ADL's, Independent Ambulation Current Level of Function: Partially Dependent Current Equipment Used at Home: bsc, oxygen, rolling walker Pain Assessement - Location back Description: Aching Pain Behavior: Facial Grimacing Pain Aggravating Factors: Changing Position, Standing, Walking Pain Alleviating Factors: Medication Interventions - Objective Patient Orientation: Person, Place, Time, Situation Current Interventions: Oxygen Observation: extensive bruising BUE Range of Motion - ROM Right Upper Extremity AROM: WFL's Left Upper Extremity AROM: WFL's Right Lower Extremity AROM: WFL's Left Lower Extremity AROM: WFL's Muscle Strength - Muscle Strength Right Upper Extremity Strength: Mild Weakness (grossly 4-/5) Left Upper Extremity Strength: Mild Weakness (grossly 4-/5) Right Lower Extremity Strength: Mild Weakness (hip flex 4-/5, knee flex/ext 4/5 , ankle DF/PF 4/5) Left Lower Extremity Strength: Mild Weakness (hip flex 4-/5, knee flex/ext 4/5, ankle DF/PF 4/5) Sensation - Sensation Right Upper Extremity Sensation: Intact/Normal Left Upper Extremity Sensation: Intact/Normal Right Lower Extremity Sensation: Intact/Normal Left Lower Extremity Sensation: Intact/Normal Palpation Palpation Findings: Tenderness Comments:: upper lumbar Balance - Sitting Balance and Reactions Static Sitting Balance: Fair Dynamic Sitting Balance: Fair Sitting Equilibrium Reactions: Delayed Left, Delayed Right Sitting Protective Reactions: Delayed Left, Delayed Right - Standing Balance and Reactions Static Standing Balance: Poor Dynamic Standing Balance: Poor Standing Equilibrium Reactions: Delayed Left, Delayed Right Standing Protective Reactions: Delayed Left, Delayed Right Functional Mobility - Bed Mobility Scooting: Min Assist Supine to Sit: Min Assist - Transfers Sit to Stand: Min Assist, 2 person assist Stand to Sit: Min Assist, 2 person assist - Safety Awareness Safety Awareness: Good JAMLA INDEX SCORE: 31 Ambulation - Ambulation Assistive Device Used: Rolling Walker Orthotic/Prosthetic Device: No Distance: 25ft Assistance needed with Ambulation: CGA, Min Assist, 2 person assist Gait Deviations: Forward posture, Short stride, Deviates from path Ambulation Comments: pt requires several standing rest periods during gait. Factors Affecting Ambulation: Decreased Balance, Pain, Weakness, Decreased Coordination, Decreased ROM, Decreased Safety Treatment time - Units charged Gait trainin - Time with patient Length of Evaluation: 18 Total treatment time: 28 Patient Education - Education Patient Education: Home Exercise Program, Education of Plan of Care Teaching Recipient: Patient Teaching Methods: Discussion, Demonstration Comments: discussion and demonstration of safety with gait training and PLB Assessment - Assessment Problem List:: Decreased level of function, Requires training/education, Decreased safety/Risk of falls, Weakness, Pain limits previous level of function Rehab Potential: Good Further Therapy Indicated?: Yes Candidate for Swing Bed for Therapy Services?: pt is currently a swing bed patient Evaluation Complexity: HISTORY: Medium (COPD, back pain, GERD, age), EXAM OF BODY SYSTEMS: Medium (strength, balance, gait, endurance, ), CLINICAL PRESENTATION: Medium, CLINICAL DECISION MAKING: Medium Short Term Goals GOAL #1: pt able to perform rolling, bridging with verbal cues Goal to be met by: 01/26/19 GOAL #2: Transfer sup to/from sit with CGA Goal to be met by: 01/26/19 GOAL #3: sit to/from stand CGA to min x 1 Goal to be met by: 01/26/19 GOAL #4: pt amb with rwx 50ft with min x 1 Goal to be met by: 01/26/19 Fpc Goals GOAL #1: pt transfer sup to/from sit to/from stand CGA to SBA Goal to be met by: 02/02/19 GOAL #2: pt amb with rwx with CGA functional household distances. Goal to be met by: 02/02/19 GOAL #3: pt demonstrate improved dyn stand balance fair Goal to be met by: 02/02/19 Plan Plan of Care: Therapeutic EX, Therapeutic Activity Other:: gait training Frequency of Treatment: 1-2 X day, as tolerated Duration of Treatment: 2 Weeks Anticipated Discharge Destination: Home Treatment Diagnosis (ICD 10 Codes): R 26.81 balance impaired. R 26.2 difficulty walking. M 62.81 weakness Has the Physician been added for Co-signature?: Yes
[2019-01-21] MEDS: SOLU-CORTEF 100 MG IVP SCH ×2 (03:35→05:54)
[2019-01-21] MEDS: XOPENEX 1.25 MG NEB SCH ×2 (04:58→16:56)
[2019-01-21] MEDS: CARAFATE PO SCH ×4 (05:55→20:28)
[2019-01-21] MEDS: LASIX TAB PO SCH (05:55)
[2019-01-21] MEDS ORDERED: PREDNISONE PO SCH (08:00)
[2019-01-21] MEDS: MYLANTA SUSP PO PRN (08:26)
[2019-01-21] MEDS: K-DUR PO SCH ×2 (08:26→17:35)
[2019-01-21] MEDS ORDERED: K-DUR ONE (08:28)
[2019-01-21] MEDS: CARDIZEM PO SCH ×2 (08:29→20:28)
[2019-01-21] MEDS: LOVENOX SUBCUT SCH (08:30)
[2019-01-21] MEDS: PREDNISONE PO SCH (08:31)
[2019-01-21] MEDS: PROTONIX IV IVP SCH ×2 (08:31→20:28)
[2019-01-21] MEDS: ASPIRIN EC PO SCH (08:31)
[2019-01-21] MEDS: COZAAR PO SCH ×2 (08:31→20:27)
[2019-01-21] MEDS: TIOTROPIUM BR IH SCH (09:57)
[2019-01-21] MEDS: [UNRECOGNIZED DRUG - OTHER] IH SCH (09:57)
[2019-01-21] MEDS: OLODATEROL HCL IH SCH (09:57)
--- NOTE | 2019-01-21 12:52 | PN ---
DATE OF SERVICE: 01/21/19 SUBJECTIVE: The patient was seen and examined this morning. She is feeling a lot better. REVIEW OF SYSTEMS: CONSTITUTIONAL: Fatigue. No night sweats. No malaise, lethargy. No fever or chills. HEENT: Eyes: No visual changes. No eye pain. No eye discharge. ENT: No runny nose. No epistaxis. No sinus pain. No sore throat. No odynophagia. No congestion. RESPIRATORY: No cough, no congestion. No hemoptysis. Shortness of breath on exertion but she is talking without stopping in between. CARDIOVASCULAR: No angina symptoms. No CHF symptoms. No atypical chest pain for CAD. No palpitations. No PND. No orthopnea. GASTROINTESTINAL: No abdominal pain. No nausea or vomiting. No diarrhea or constipation. No hematemesis. No hematochezia. GENITOURINARY: No urgency. No frequency. No dysuria. No hematuria. No obstructive symptoms. No discharge. No pain. No significant abnormal bleeding. MUSCULOSKELETAL: No musculoskeletal pain; no joint swelling. NEUROLOGICAL: No headache. No neck pain. No syncope. No seizures. No dizziness. PSYCHIATRIC: Not anxious. No depression. No suicidal thoughts. No homicidal thoughts. SKIN: No rash. No lesions. No wounds. ENDOCRINE: No unexplained weight loss. No weight gain. HEMATOLOGIC/LYMPHATIC: No anemia. No purpura. No petechiae. No prolonged or excessive bleeding. No palpable lymph nodes. PHYSICAL EXAMINATION: HEENT: Head normocephalic, atraumatic. Eyes: Extraocular muscles are intact. Pupils are equal, round and reactive to light and accommodation. Ears: No lesions. Nose appeared normal. Throat: No exudate or erythema. NECK: Supple. No JVD, no carotid bruit. No lymphadenopathy or thyromegaly. LUNGS: Decreased breath sounds bilaterally. Clear to auscultation. Percussion note normal. Chest symmetrical. HEART: S1, S2, no S3. No murmurs. No cyanosis or clubbing. No ascites. Pulses: Dorsalis pedis and posterior tibial pulses +1 to +2 bilaterally. ABDOMEN: Soft. Nontender. Bowel sounds active. No CVA tenderness. No mass felt. EXTREMITIES: No pedal edema. Full range of motion of all extremities, equal. NEUROLOGIC: No focal deficit. Cranial nerves II through XII are grossly intact. No headache, no double vision or headache. SKIN: Not dry. Intact. Turgor - normal. LYMPHATIC: No palpable lymph nodes/no lymphedema. MUSCULOSKELETAL: Normal joints with no swelling. Muscle tone is normal. The patient's overall attitude has improved. Anxiety seems to have decreased. Blood pressure is under control. Condition is improving. The patient needs physical therapy to improve that she can do her activity of daily living. She is reluctant to go to the alf. She has declined hospice. The patient has end-stage chronic lung disease. TIME SPENT: More than 30 minutes. Plan and coordination of the patient's care discussed in the presence of nurse. RUDY
--- NOTE | 2019-01-21 13:39 | RS.OTINEVL ---
Subjective - Patient information Date of Evaluation: 01/21/19 Date of Arrival on Unit: 01/19/19 Diagnosis: Back pain, COPD PRECAUTIONS: Fall Risk Usual Living Arrangement: Alone Living Arrangement Comments: Pt lives alone in her home. Her son helps her with laundry, food, cleaning her home. Home Environment: House, Stairs (few), No rail Medical History Comments:: COPD, back pain, hiatal hernia, psoriasis, hysterectomy, 2 C sections, HTN, gallbladder, O2 dep., Reflux Surgical History Comments:: hysterectomy, 2 C sections, gall bladder removed, Subjective Information/ Patient Comments:: "Ernesto will not bathe me." "He does alot for me." - Level of function Prior to this admission, the patient could do the following:: Independent Selfcare, Independent ADL's, Independent Ambulation Abilities prior to this admission: Pt was living alone in her home. Pt reports she was walking with her rolling walker. Pt uses a shower chair. Pt did not drive. Current Level of Function: Partially Dependent Current Equipment Used at Home: bsc, oxygen, rolling walker Pain Assessment - Pain Pain Score: 0 Side: bilateral Pain Location Body Site: Back Pain Aggravating Factors: Standing Pain Alleviating Factors: Medication Interventions - Objective Patient Orientation: Person, Place, Time, Situation Current Interventions: Oxygen, Guevara Catheter Observation: Pt is weak and has a fear of falling. Pt takes short steps when walking with RW. Interventions - ROM Right Upper Extremity AROM: Slight limitation Left Upper Extremity AROM: WFL's - Strength Right Upper Extremity Strength: Mild Weakness Left Upper Extremity Strength: Mild Weakness - Sensation Right Upper Extremity Sensation: Intact/Normal Left Upper Extremity Sensation: Intact/Normal Balance - Sitting Balance Static Sitting Balance: Fair Dynamic Sitting Balance: Fair - Standing Balance Static Standing Balance: Fair Dynamic Standing Balance: Fair ADL Skills - Self Feeding Self Feeding: Independent - Grooming Grooming: Mod Assist - Bathing Bathing UE: Not Tested Bathing LE: Not Tested - Dressing Dressing UE: Min Assist Dressing LE: Max Assist - Toilet Management Toileting Management: Min Assist Functional Mobility - Bed Mobility Rolling R/L: CGA Scooting: Min Assist Supine to Sit: CGA Sit to Supine: CGA - Transfers Sit to Stand: Min Assist Stand to Sit: Min Assist Stand Pivot Transfers: Min Assist - Ambulation Weight Bearing Status: FWB Assistive Device Used: Rolling Walker Assistance needed with Ambulation: Min Assist, 1 person assist - Safety Awareness Safety Awareness: Good JAMAL INDEX SCORE: 31 Additional Treatment Performed - Additional units charged ADL: 16 - Time with patient Length of Evaluation: 20 Total treatment time: 36 Activities Do you enjoy playing games?: Yes Would you be interested in leaving your room for activities?: Yes Would you enjoy group activities?: Yes Do you have difficulty with your vision?: Yes What types of things do you enjoy doing? Any Hobbies?: solitaire, card games, puzzles, reading newspaper Patient Interests:: Reading Books/Magazines, Puzzles/Games Patient Education Patient Education: Education of diagnosis, Home Exercise Program, Home Safety, Education of Plan of Care Teaching Recipient: Patient, Family Teaching Methods: Teach Back Method Used, Discussion Assessment Problem List:: Decreased level of function, Requires training/education, Decreased safety/Risk of falls, Weakness Rehab Potential: Good Further Therapy Indicated?: Yes Candidate for Swing Bed for Therapy Services?: yes Evaluation Complexity: HISTORY: Medium, EXAM OF BODY SYSTEMS: Medium, CLINICAL DECISION MAKING: Medium Short Term Goals - Goals GOAL 1: Pt to increase BUE strength to 4/5. Goal to be met by: 01/27/19 GOAL 2: Pt to increase UB dressing to CGA. Goal to be met by: 01/27/19 GOAL 3: Pt to increase LB dressing to CGA. Goal to be met by: 01/27/19 GOAL 4: Pt to increase activity tolerance with 8 minutes. Goal to be met by: 01/27/19 Half-Way Goals GOAL 1: Pt to increase BUE strength to 4+/5. Goal to be met by: 02/04/19 GOAL 2: Pt to increase dressing to independent. Goal to be met by: 02/04/19 GOAL 3: Pt to increase activity tolerance with 15 minutes. Goal to be met by: 02/04/19 Plan Plan of Care: Therapeutic EX, Neuromuscular Re-Educ, Therapeutic Activity, Self- Care/Home Management Modalities: Cold Pack/Cryotherapy, Electrical Stimulation Frequency of Treatment: 1-2 X day, as tolerated Duration of Treatment: 2 Weeks Anticipated Discharge Destination: Assisted Living Facility Treatment Diagnosis (ICD 10 Codes): M62.81 muscle weakness, Z74.1 Need for assistance with personal care. Has the Physician been added for Co-signature?: Yes
[2019-01-21] MEDS: XANAX PO PRN (20:27)
[2019-01-22] MEDS: XOPENEX 1.25 MG NEB SCH ×2 (04:45→17:04)
[2019-01-22] MEDS: LASIX TAB PO SCH (05:55)
[2019-01-22] MEDS: CARAFATE PO SCH ×4 (05:55→20:52)
[2019-01-22] MEDS: MYLANTA SUSP PO PRN (08:17)
[2019-01-22] MEDS: CARDIZEM PO SCH ×2 (08:50→20:53)
[2019-01-22] MEDS: COZAAR PO SCH ×2 (08:51→20:52)
[2019-01-22] MEDS: PREDNISONE PO SCH (08:51)
[2019-01-22] MEDS: ASPIRIN EC PO SCH (08:52)
[2019-01-22] MEDS: K-DUR PO SCH ×2 (08:52→16:43)
[2019-01-22] MEDS: LOVENOX SUBCUT SCH (08:59)
[2019-01-22] MEDS: TIOTROPIUM BR IH SCH (09:02)
[2019-01-22] MEDS: OLODATEROL HCL IH SCH (09:02)
[2019-01-22] MEDS: [UNRECOGNIZED DRUG - OTHER] IH SCH (09:02)
[2019-01-22] MEDS: PROTONIX IV IVP SCH (09:28)
[2019-01-22] MEDS ORDERED: MORPHINE 2 MG/ML SYRINGE IM PRN (11:51)
[2019-01-22] MEDS: TORADOL IM PRN (13:30)
[2019-01-22] MEDS: PROTONIX PO SCH (16:42)
[2019-01-22] MEDS: ZANTAC PO SCH (16:43)
[2019-01-22] MEDS: LEVAQUIN PO SCH (17:02)
[2019-01-22] MEDS: XANAX PO PRN (20:56)
[2019-01-23] MEDS: XOPENEX 1.25 MG NEB SCH ×2 (04:40→17:04)
[2019-01-23] MEDS: LEVAQUIN PO SCH (05:53)
[2019-01-23] MEDS: CARAFATE PO SCH ×4 (05:53→20:55)
[2019-01-23] MEDS: ZANTAC PO SCH ×2 (05:54→16:59)
[2019-01-23] MEDS: PROTONIX PO SCH ×2 (05:54→17:00)
[2019-01-23] MEDS: LASIX TAB PO SCH (05:54)
[2019-01-23] MEDS: K-DUR PO SCH ×2 (08:40→16:59)
[2019-01-23] MEDS: ASPIRIN EC PO SCH (08:40)
[2019-01-23] MEDS: CARDIZEM PO SCH ×2 (08:40→20:56)
[2019-01-23] MEDS: COZAAR PO SCH ×2 (08:40→20:55)
[2019-01-23] MEDS: PREDNISONE PO SCH (08:41)
[2019-01-23] MEDS: OLODATEROL HCL IH SCH (08:50)
[2019-01-23] MEDS: [UNRECOGNIZED DRUG - OTHER] IH SCH (08:50)
[2019-01-23] MEDS: TIOTROPIUM BR IH SCH (08:50)
[2019-01-23] MEDS: TORADOL IM PRN (09:46)
[2019-01-24] MEDS: XOPENEX 1.25 MG NEB SCH ×2 (04:35→16:56)
[2019-01-24] MEDS: LEVAQUIN PO SCH (05:38)
[2019-01-24] MEDS: CARAFATE PO SCH ×4 (05:38→20:58)
[2019-01-24] MEDS: PROTONIX PO SCH ×2 (05:39→16:52)
[2019-01-24] MEDS: ZANTAC PO SCH ×2 (05:39→16:52)
[2019-01-24] MEDS: LASIX TAB PO SCH (05:39)
[2019-01-24] MEDS: COZAAR PO SCH ×2 (09:01→20:58)
[2019-01-24] MEDS: CARDIZEM PO SCH ×2 (09:01→20:57)
[2019-01-24] MEDS: K-DUR PO SCH ×2 (09:01→16:52)
[2019-01-24] MEDS: ASPIRIN EC PO SCH (09:01)
[2019-01-24] MEDS: PREDNISONE PO SCH (09:01)
[2019-01-24] MEDS: TIOTROPIUM BR IH SCH (09:31)
[2019-01-24] MEDS: [UNRECOGNIZED DRUG - OTHER] IH SCH (09:31)
[2019-01-24] MEDS: OLODATEROL HCL IH SCH (09:31)
--- NOTE | 2019-01-24 10:41 | PN ---
DATE OF SERVICE: 01/23/19 SUBJECTIVE: The patient is upbeat and doing well, eating better, going to the bathroom on her own. The patient had UA with culture sensitivity done yesterday as she had frequency. Appetite seems to be improving some, mostly on liquids. Swallowing is still a problem with solid food. Since upper GI was abnormal discussed again. The patient is not stable enough to undergo EGD. REVIEW OF SYSTEMS: CONSTITUTIONAL: No night sweats. No fatigue, malaise, lethargy. No fever or chills. HEENT: Eyes: No visual changes. No eye pain. No eye discharge. ENT: No runny nose. No epistaxis. No sinus pain. No sore throat. No odynophagia. No congestion. RESPIRATORY: No cough, no congestion. No hemoptysis. No shortness of breath. CARDIOVASCULAR: No angina symptoms. No CHF symptoms. No atypical chest pain for CAD. No palpitations. No PND. No orthopnea. GASTROINTESTINAL: No abdominal pain. No nausea or vomiting. No diarrhea or constipation. No hematemesis. No hematochezia. GENITOURINARY: No urgency. No frequency. No dysuria. No hematuria. No obstructive symptoms. No discharge. No pain. No significant abnormal bleeding. MUSCULOSKELETAL: No musculoskeletal pain; no joint swelling. NEUROLOGICAL: No headache. No neck pain. No syncope. No seizures. No dizziness. PSYCHIATRIC: Not anxious. No depression. No suicidal thoughts. No homicidal thoughts. SKIN: No rash. No lesions. No wounds. ENDOCRINE: No unexplained weight loss. No weight gain. HEMATOLOGIC/LYMPHATIC: No anemia. No purpura. No petechiae. No prolonged or excessive bleeding. No palpable lymph nodes. PHYSICAL EXAMINATION: HEENT: Head normocephalic, atraumatic. Eyes: Extraocular muscles are intact. Pupils are equal, round and reactive to light and accommodation. Ears: No lesions. Nose appeared normal. Throat: No exudate or erythema. NECK: Supple. No JVD, no carotid bruit. No lymphadenopathy or thyromegaly. LUNGS: More air entry than last past couple of days. Clear to auscultation. Percussion note normal. Chest symmetrical. HEART: S1, S2, no S3. No murmurs. No cyanosis or clubbing. No ascites. Pulses: Dorsalis pedis and posterior tibial pulses +1 to +2 bilaterally. ABDOMEN: Soft. Nontender. Bowel sounds active. No CVA tenderness. No mass felt. No ascites. EXTREMITIES: No edema. Full range of motion of all extremities, equal. NEUROLOGIC: No focal deficit. Cranial nerves II through XII are grossly intact. No headache, no double vision or headache. SKIN: Not dry. Intact. Turgor - normal. LYMPHATIC: No palpable lymph nodes/no lymphedema. MUSCULOSKELETAL: Normal joints with no swelling. Muscle tone is normal. ASSESSMENT/PLAN: 1. BACK PAIN HAS IMPROVED. WILL PUT HER ON MORPHINE SULFATE AND TORADOL IM - SHE DOESN'T WANT ANY IV TO BE STARTED. BACK PAIN SEEMS TO BE A LOT BETTER. SHE IS MOVING PRACTIALLY NO DISCOMFORT. 2. CHRONIC LUNG DISEASE UNDER CONTROL AND IMPROVING. 3. SWALLOWING SEEMS TO BE A PROBLEM. PATIENT IS ON PROTONIX. WILL PUT HER ON ZANTAC. SHE IS ALREADY ON CARAFATE. SHE IS NOT STABLE ENOUGH TO UNDERGO EGD. SHE HAS BEEN EXPLAINED ABOUT THE FINDINGS ON UPPER GI, THE POSSIBILITY OF CANCER OF THE ESOPHAGUS EXISTS. THE PATIENT IS NOT WILLING TO UNDERGO ANY COLONOSCOPY OR EGD AT THIS TIME. CONDITION: Stable/improving. TIME SPENT: More than 30 minutes. Plan and coordination of the patient's care discussed in the presence of nurse. MTDD
[2019-01-24] MEDS: XANAX PO PRN ×2 (11:44→22:38)
[2019-01-25] MEDS: XOPENEX 1.25 MG NEB SCH ×2 (04:45→18:17)
[2019-01-25] MEDS: LEVAQUIN PO SCH (05:40)
[2019-01-25] MEDS: CARAFATE PO SCH ×4 (05:40→20:44)
[2019-01-25] MEDS: LASIX TAB PO SCH (05:41)
[2019-01-25] MEDS: ZANTAC PO SCH ×2 (05:41→16:37)
[2019-01-25] MEDS: PROTONIX PO SCH ×2 (05:41→16:36)
[2019-01-25] MEDS ORDERED: PREDNISONE PO SCH (08:30)
[2019-01-25] MEDS: COZAAR PO SCH ×2 (08:54→20:44)
[2019-01-25] MEDS: ASPIRIN EC PO SCH (08:54)
[2019-01-25] MEDS: K-DUR PO SCH ×2 (08:54→16:36)
[2019-01-25] MEDS: CARDIZEM PO SCH ×2 (08:54→20:43)
[2019-01-25] MEDS: PREDNISONE PO SCH ×2 (08:54→09:04)
[2019-01-25] MEDS: OLODATEROL HCL IH SCH (08:56)
[2019-01-25] MEDS: [UNRECOGNIZED DRUG - OTHER] IH SCH (08:56)
[2019-01-25] MEDS: TIOTROPIUM BR IH SCH (08:56)
--- NOTE | 2019-01-25 09:21 | PN ---
DATE OF SERVICE: 01/24/19 SUBJECTIVE: The patient was seen and examined this morning. She is in swing bed. Her back pain is a lot better. She is up and about. Her swing bed physical therapy is helping her. 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 REVIEW OF SYSTEMS: CONSTITUTIONAL: No night sweats. No fatigue, malaise, lethargy. No fever or chills. HEENT: Eyes: No visual changes. No eye pain. No eye discharge. ENT: No runny nose. No epistaxis. No sinus pain. No sore throat. No odynophagia. No congestion. RESPIRATORY: No cough, no congestion. No hemoptysis. No shortness of breath. CARDIOVASCULAR: No angina symptoms. No CHF symptoms. No atypical chest pain for CAD. No palpitations. No PND. No orthopnea. GASTROINTESTINAL: No abdominal pain. No nausea or vomiting. No diarrhea or constipation. No hematemesis. No hematochezia. GENITOURINARY: No urgency. No frequency. No dysuria. No hematuria. No obstructive symptoms. No discharge. No pain. No significant abnormal bleeding. MUSCULOSKELETAL: No musculoskeletal pain; no joint swelling. NEUROLOGICAL: No headache. No neck pain. No syncope. No seizures. No dizziness. PSYCHIATRIC: Not anxious. No depression. No suicidal thoughts. No homicidal thoughts. SKIN: No rash. No lesions. No wounds. ENDOCRINE: No unexplained weight loss. No weight gain. HEMATOLOGIC/LYMPHATIC: No anemia. No purpura. No petechiae. No prolonged or excessive bleeding. No palpable lymph nodes. PHYSICAL EXAMINATION: HEENT: Head normocephalic, atraumatic. Eyes: Extraocular muscles are intact. Pupils are equal, round and reactive to light and accommodation. Ears: No lesions. Nose appeared normal. Throat: No exudate or erythema. NECK: Supple. No JVD, no carotid bruit. No lymphadenopathy or thyromegaly. LUNGS: Decreased breath sounds with good air entry Clear to auscultation. Percussion note normal. Chest symmetrical. HEART: S1, S2, no S3. No murmurs. No cyanosis or clubbing. No ascites. Pulses: Dorsalis pedis and posterior tibial pulses +1 to +2 bilaterally. ABDOMEN: Soft. Nontender. Bowel sounds active. No CVA tenderness. No mass felt. EXTREMITIES: No edema. Full range of motion of all extremities, equal. NEUROLOGIC: No focal deficit. Cranial nerves II through XII are grossly intact. No headache, no double vision or headache. SKIN: Not dry. Intact. Turgor - normal. LYMPHATIC: No palpable lymph nodes/no lymphedema. MUSCULOSKELETAL: Normal joints with no swelling. Muscle tone is normal. ASSESSMENT: 1. Endurance seems to be improving with improvement in her physical and mental status. PLAN: 1. Continue same medications with NEBS, Steroids angiolytics and pain medications. TIME SPENT: More than 30 minutes. Plan and coordination of the patient's care discussed in the presence of nurse. RUDY
[2019-01-25] MEDS: DIFLUCAN PO SCH (12:49)
[2019-01-25] MEDS: NYSTATIN ORAL SUSP PO SCH (16:40)
[2019-01-25] MEDS: XANAX PO PRN (20:49)
[2019-01-26] MEDS: XOPENEX 1.25 MG NEB SCH ×2 (04:40→17:04)
[2019-01-26] MEDS: LASIX TAB PO SCH (05:36)
[2019-01-26] MEDS: PROTONIX PO SCH ×2 (05:36→16:36)
[2019-01-26] MEDS: CARAFATE PO SCH ×4 (05:37→20:50)
[2019-01-26] MEDS: ZANTAC PO SCH ×2 (05:37→16:36)
[2019-01-26] MEDS: TORADOL IM PRN ×2 (06:37→20:51)
[2019-01-26] MEDS: [UNRECOGNIZED DRUG - OTHER] IH SCH (08:43)
[2019-01-26] MEDS: TIOTROPIUM BR IH SCH (08:43)
[2019-01-26] MEDS: OLODATEROL HCL IH SCH (08:43)
[2019-01-26] MEDS: CARDIZEM PO SCH ×2 (08:44→20:51)
[2019-01-26] MEDS: K-DUR PO SCH ×2 (08:45→16:40)
[2019-01-26] MEDS: COZAAR PO SCH ×2 (08:46→20:50)
[2019-01-26] MEDS: NYSTATIN ORAL SUSP PO SCH ×3 (08:47→16:41)
[2019-01-26] MEDS: PREDNISONE PO SCH (08:47)
[2019-01-26] MEDS: ASPIRIN EC PO SCH (08:47)
[2019-01-26] MEDS: DIFLUCAN PO SCH (08:47)
[2019-01-26] MEDS: LEVAQUIN PO SCH (08:50)
--- NOTE | 2019-01-26 09:28 | PCM.PROG ---
Attending Provider: ATTENDING PROVIDER: Dr. JAIMIE WOODALL This patient is seen with Karishma Wyatt, Nurse Practitioner. DATE OF SERVICE: 01/26/19 SUBJECTIVE: This 83 year old WHITE/ F was hospitalized 01/19/19. The patient is resting comfortably. The patient is slightly more short of breath today at rest. Physical therapy is going well. She is wanting to go home by the end of the week. REVIEW OF SYSTEMS: CONSTITUTIONAL: No night sweats. No fatigue, malaise, lethargy. No fever or chills. HEENT: Eyes: No visual changes. No eye pain. No eye discharge. ENT: No runny nose. No epistaxis. No sinus pain. No odynophagia. No congestion. RESPIRATORY: No cough, no congestion. No hemoptysis. Shortness of breath. CARDIOVASCULAR: No angina symptoms. No CHF symptoms. No atypical chest pain for CAD. No palpitations. No orthopnea.. GASTROINTESTINAL: No abdominal pain. No nausea or vomiting. No diarrhea or constipation. No hematemesis. No hematochezia. GENITOURINARY: No urgency. No frequency. No dysuria. No hematuria. No obstructive symptoms. No discharge. No pain. No significant abnormal bleeding. MUSCULOSKELETAL: No musculoskeletal pain; no joint swelling. Weakness. NEUROLOGICAL: Awake, alert, oriented to time, place and person. No headache. No neck pain. No syncope. No seizures. No dizziness. PSYCHIATRIC: Not anxious. No depression. No suicidal thoughts. No homicidal thoughts. SKIN: No rash. No lesions. No wounds. ENDOCRINE: No unexplained weight loss. No weight gain. HEMATOLOGIC/LYMPHATIC: No anemia. No purpura. No petechiae. No prolonged or excessive bleeding. No palpable lymph nodes. PHYSICAL EXAMINATION: GENERAL: The patient is awake, alert and oriented,sitting in chair in no distress. VITAL SIGNS: Temperature 98.4 F, Pulse 75, Respiratory Rate 16, BP 109/68, Pulse Ox 99% HEENT: Head normocephalic, atraumatic. Eyes: Extraocular muscles are intact. Pupils are equal, round and reactive to light and accommodation. Ears: No lesions. Nose appeared normal. Throat: No exudate or erythema. NECK: Supple. No JVD, no carotid bruit. No lymphadenopathy or thyromegaly. LUNGS: Diminished breath sounds. Clear to auscultation. Percussion note normal. Chest symmetrical. HEART: S1, S2, no S3. No murmurs. No cyanosis or clubbing. No ascites. Pulses: Dorsalis pedis and posterior tibial pulses +1 to +2 both sides. ABDOMEN: Soft. Non-tender. Bowel sounds active. No CVA tenderness. No mass felt. EXTREMITIES: Trace pedal edema. Full range of motion of all extremities, equal. NEUROLOGIC: No focal deficit. Cranial nerves II through XII are grossly intact. No headache, no double vision or headache. SKIN: Not dry. Intact. Turgor-normal. LYMPHATIC: No palpable lymph nodes/no lymphedema. MUSCULOSKELETAL: Normal joints with no swelling. Muscle tone is normal. LAB REVIEW: 01/26/19 05:00 01/23/19 04:40 01/26/19 05:00: WBC 8.70, RBC 3.65 L, Hgb 11.3 L, Hct 34.8 L, MCV 95.3, MCH 31.0 , MCHC 32.5, RDW Coeff of Nick 13.0, Plt Count 173, Immature Gran % (Auto) 1.0, Neut % (Auto) 80.5, Lymph % (Auto) 11.7, [place] % (Auto) 5.9, Eos % (Auto) 0.8, Baso % (Auto) 0.1, Immature Gran # (Auto) 0.1, Neut # (Auto) 7.0 H, Lymph # ( Auto) 1.0, [place] # (Auto) 0.5, Eos # (Auto) 0.1, Baso # (Auto) 0.0 ASSESSMENT: Please see below. 1. Back pain has improved. 2. Chronic lung disease under control and improving PLAN: 1. Discontinue physical and occupational therapy. Plan and coordination of the patient's care discussed in the presence of Foaming Machine Operator and nurse. SCRIBED BY: Neil ACEVEDO scribed while in presence of service performed by Dr. Woodall/Karishma Wyatt APRN on 01/26/19 ([id number])
[2019-01-27] MEDS: XOPENEX 1.25 MG NEB SCH ×2 (04:45→17:15)
[2019-01-27] MEDS: LASIX TAB PO SCH (05:45)
[2019-01-27] MEDS: ZANTAC PO SCH ×2 (05:45→17:22)
[2019-01-27] MEDS: CARAFATE PO SCH ×4 (05:45→21:17)
[2019-01-27] MEDS: PROTONIX PO SCH ×2 (05:45→17:22)
[2019-01-27] MEDS: LEVAQUIN PO SCH (05:45)
[2019-01-27] MEDS: K-DUR PO SCH ×2 (09:34→17:22)
[2019-01-27] MEDS: ASPIRIN EC PO SCH (09:34)
[2019-01-27] MEDS: COZAAR PO SCH ×2 (09:34→21:17)
[2019-01-27] MEDS: NYSTATIN ORAL SUSP PO SCH ×3 (09:35→17:22)
[2019-01-27] MEDS: PREDNISONE PO SCH (09:35)
[2019-01-27] MEDS: CARDIZEM PO SCH ×2 (09:35→21:17)
[2019-01-27] MEDS: DIFLUCAN PO SCH (09:35)
[2019-01-27] MEDS: [UNRECOGNIZED DRUG - OTHER] IH SCH (09:36)
[2019-01-27] MEDS: TIOTROPIUM BR IH SCH (09:36)
[2019-01-27] MEDS: OLODATEROL HCL IH SCH (09:36)
[2019-01-27] MEDS: XANAX PO PRN (21:17)
[2019-01-28] MEDS: XOPENEX 1.25 MG NEB SCH (04:45)
[2019-01-28] MEDS: CARAFATE PO SCH ×2 (05:26→10:27)
[2019-01-28 05:41] VITALS: BP 98/55; TEMP 98.2
[2019-01-28] MEDS: LEVAQUIN PO SCH (05:57)
[2019-01-28] MEDS: LASIX TAB PO SCH (05:57)
[2019-01-28] MEDS: PROTONIX PO SCH (05:59)
[2019-01-28] MEDS: ZANTAC PO SCH (06:00)
[2019-01-28] MEDS: COZAAR PO SCH (09:29)
[2019-01-28] MEDS: OLODATEROL HCL IH SCH (09:29)
[2019-01-28] MEDS: NYSTATIN ORAL SUSP PO SCH ×2 (09:29→11:43)
[2019-01-28] MEDS: TIOTROPIUM BR IH SCH (09:29)
[2019-01-28] MEDS: [UNRECOGNIZED DRUG - OTHER] IH SCH (09:29)
[2019-01-28] MEDS: ASPIRIN EC PO SCH (09:30)
[2019-01-28] MEDS: DIFLUCAN PO SCH (09:30)
[2019-01-28] MEDS: CARDIZEM PO SCH (09:30)
[2019-01-28] MEDS: PREDNISONE PO SCH (09:31)
[2019-01-28] MEDS: XANAX PO PRN (09:32)
[2019-01-28] MEDS: K-DUR PO SCH (09:47)
--- NOTE | 2019-01-28 11:16 | DS ---
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 BETTENCOURT HYSTERECTOMY HERNIORRHAPHY C-SECTIONS X2 CHOLECYSTECTOMY FORMER HEAVY SMOKER LAST VITALS: Temp Pulse Resp BP Pulse Ox 98.2 F 70 20 98/55 L 99 01/28/19 05:41 01/28/19 05:41 01/28/19 05:41 01/28/19 05:41 01/28/19 05:41 DISCHARGE INSTRUCTIONS: DISCHARGE HOME. CONTINUE MEDICATIONS LISTED ON NURSING DISCHARGE INFORMATION SHEET. AN APPOINTMENT IS SCHEDULED WITH DR. WOODALL ON January AT 10 AM. PLEASE CALL IF YOU NEED TO RESCHEDULE. CODE STATUS: CPR ONLY TAKE THESE MEDICATIONS AT HOME: Albuterol Sulfate (Proair Hfa) 1 puff IH Q6H PRN Alprazolam (Xanax) 0.25 mg PO QID PRN Artificial Tears (Artificial Tears Opth Cony) 2 drop OP Q2H PRN Aspirin (Aspirin Ec) 81 mg PO DAILYWM RAMILA Diltiazem HCl (Cardizem) 60 mg PO BID RAMILA Fluconazole (Diflucan) 150 mg PO QOD FOR 3 DOSES RAMILA Furosemide (Lasix Tab) 20 mg PO QDAC RAMILA Levofloxacin (Levaquin) 250 mg PO QDAC RAMILA FOR 4 DAYS Losartan Potassium (Cozaar) 50 mg PO BID RAMILA Non-Formulary Medication (Tiotropium Br/Olodaterol Hcl [Stiolto Respimat Inhal [place]]) 4 gm IH DAILY RAMILA Pantoprazole Sodium (Protonix) 40 mg PO DAILYAC RAMILA Potassium Chloride (KLOR-CON) 10 meq PO DAILY WM RAMILA Prednisone (Prednisone) 10 mg PO DAILYWM RAMILA ALLERGIES: cephalexin monohydrate [From [email or web address]] Allergy (Verified 01/09/19 09:23) codeine Adverse Reaction (Verified 01/09/19 09:23) diphenhydramine [From Benadryl] Adverse Reaction (Verified 01/09/19 09:23) latex Adverse Reaction (Verified 01/09/19 09:23) meperidine [From Demerol] Adverse Reaction (Verified 01/09/19 09:23) DISCONTINUED MEDICATIONS: NONE NEW PRESCRIPTIONS: DIFLUCAN 150 MG TAKE 1 EVERY OTHER DAY (3 DOSES) COZAAR 50 MG BID ALPRAZOLAM 0.25 MG TAKE QID PRN PROTONIX 40 MG DAILY LEVAQUIN 250 MG DAILY FOR 4 DAYS SMOKING: NOT APPLICABLE DISEASE SPECIFIC EDUCATION: COPD USE OF OXYGEN, INHALERS PRESCRIPTIONS, INCLUDING USE OF STEROIDS APPOINTMENT DIET: REGULAR TOLERATED, INCLUDING SNACKS DURING THE DAY. AVOID SPICY FOODS ACTIVITY: GRADUALLY RESUME TOLERATED USING OXYGEN AT 2 LITERS HOSPITAL COURSE: 83 year old white female hospitalized in the swing bed for acute bronchitis, severe intractable back pain with chronic compression fracture. Her pain has been under control with Morphine Sulfate. The patient chronic lung disease has improved. Her physical activity has improved and she is able to part of activity for daily living. Blood pressure has been under control. Her swallowing issue which has resolved some due to antifungal medications. She is not medically stable for EGD. The patient is being discharge in stable condition. There was a discussion regarding Hospice with the family and they were agreeable but the patient declined. We will see her on Thursday in the office. TIME SPENT: More than 60 minutes. MTDD
--- NOTE | 2019-01-28 11:18 | PCM.PROG ---
Attending Provider: ATTENDING PROVIDER: Dr. JAIMIE WOODALL DATE OF SERVICE: 01/28/19 SUBJECTIVE: This 83 year old WHITE/ F was hospitalized 01/19/19 to the swing bed for physical therapy, severe chronic lung disease and decline in physical capabilities. She has been up and about now. Appetite has improved and anxiety is a lot better. Patient's swallowing is better with less burning. She will be on Protonix daily and Diflucan every other day for three doses. REVIEW OF SYSTEMS: CONSTITUTIONAL: No night sweats. No fatigue, malaise, lethargy. No fever or chills. HEENT: Eyes: No visual changes. No eye pain. No eye discharge. ENT: No runny nose. No epistaxis. No sinus pain. No odynophagia. No congestion. RESPIRATORY: No cough, no congestion. No hemoptysis. No shortness of breath. CARDIOVASCULAR: No angina symptoms. No CHF symptoms. No atypical chest pain for CAD. No palpitations. No orthopnea.. GASTROINTESTINAL: No abdominal pain. No nausea or vomiting. No diarrhea or constipation. No hematemesis. No hematochezia. GENITOURINARY: No urgency. No frequency. No dysuria. No hematuria. No obstructive symptoms. No discharge. No pain. No significant abnormal bleeding. MUSCULOSKELETAL: No musculoskeletal pain; no joint swelling. NEUROLOGICAL: Awake, alert, oriented to time, place and person. No headache. No neck pain. No syncope. No seizures. No dizziness. PSYCHIATRIC: Not anxious. No depression. No suicidal thoughts. No homicidal thoughts. SKIN: No rash. No lesions. No wounds. ENDOCRINE: No unexplained weight loss. No weight gain. HEMATOLOGIC/LYMPHATIC: No anemia. No purpura. No petechiae. No prolonged or excessive bleeding. No palpable lymph nodes. PHYSICAL EXAMINATION: GENERAL: The patient is awake, alert and oriented, sitting in the chair in no distress. VITAL SIGNS: Temperature 98.2 F, Pulse 70, Respiratory Rate 20, BP 98/55, Pulse Ox 99% HEENT: Head normocephalic, atraumatic. Eyes: Extraocular muscles are intact. Pupils are equal, round and reactive to light and accommodation. Ears: No lesions. Nose appeared normal. Throat: No exudate or erythema. NECK: Supple. No JVD, no carotid bruit. No lymphadenopathy or thyromegaly. LUNGS: Decreased breath sounds. Clear to auscultation. Percussion note normal. Chest symmetrical. HEART: S1, S2, no S3. No murmurs. No cyanosis or clubbing. No ascites. Pulses: Dorsalis pedis and posterior tibial pulses +2 both sides. ABDOMEN: Soft. Non-tender. Bowel sounds active. No CVA tenderness. No mass felt. EXTREMITIES: No edema. Full range of motion of all extremities, equal. NEUROLOGIC: No focal deficit. Cranial nerves II through XII are grossly intact. No headache, no double vision or headache. SKIN: Warm and dry. Intact. Turgor-normal. LYMPHATIC: No palpable lymph nodes/no lymphedema. MUSCULOSKELETAL: Normal joints with no swelling. Muscle tone is normal. LAB REVIEW: 01/27/19 04:45 01/27/19 04:45 ASSESSMENT: Please see below. 1. Chronic bronchitis 2. Severe chronic lung disease 3. Severe anxiety syndrome 4. Esophagitis with possible esophageal tumor 5. Anemia PLAN: 1. Continue Protonix 2. Possible fungal infection in esophagus, continue Diflucan 3. Continue rest of medications. PROGNOSIS: Poor and she understand that , not in physical condition or medical stable to under go EGD. The son and patient know the need for it. Plan and coordination of the patient's care discussed in the presence of Applications Tester and nurse. CONDITION: Stable SCRIBED BY: Neil ACEVEDO scribed while in presence of service performed by Dr. JAIMIE WOODALL on 01/28/19 ([id number])
--- NOTE | 2019-01-28 14:25 | CM.DICTOOL ---
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 BETTENCOURT HYSTERECTOMY HERNIORRHAPHY C-SECTIONS X2 CHOLECYSTECTOMY FORMER HEAVY SMOKER LAST VITALS Temp Pulse Resp BP Pulse Ox 98.2 F 70 20 98/55 L 99 01/28/19 05:41 01/28/19 05:41 01/28/19 05:41 01/28/19 05:41 01/28/19 05:41 TAKE THESE MEDICATIONS AT HOME Albuterol Sulfate (Proair Hfa) 1 puff IH Q6H PRN PRN Reason: SOA Alprazolam (Xanax) 0.25 mg PO QID PRN PRN Reason: Anxiety Last Admin: 01/28/19 09:32 Dose: 0.25 mg Artificial Tears (Artificial Tears Opth Cony) 2 drop OP Q2H PRN PRN Reason: Dry Eye Aspirin (Aspirin Ec) 81 mg PO DAILYWM [facility] Last Admin: 01/28/19 09:30 Dose: 81 mg Diltiazem HCl (Cardizem) 60 mg PO BID [facility] Last Admin: 01/28/19 09:30 Dose: 90 mg Fluconazole (Diflucan) 150 mg PO QOD FOR 3 DOSES [facility] Stop: 01/30/19 12:59 Last Admin: 01/28/19 09:30 Dose: 150 mg Furosemide (Lasix Tab) 20 mg PO QDAC [facility] Last Admin: 01/28/19 05:57 Dose: 20 mg Levofloxacin (Levaquin) 250 mg PO QDAC [facility] FOR 4 DAYS Stop: 01/29/19 08:29 Last Admin: 01/28/19 05:57 Dose: 250 mg Losartan Potassium (Cozaar) 50 mg PO BID [facility] Last Admin: 01/28/19 09:29 Dose: 50 mg Non-Formulary Medication (Tiotropium Br/Olodaterol Hcl [Stiolto Respimat Inhal [place]]) 4 gm IH DAILY [facility] Last Admin: 01/28/19 09:29 Dose: 4 gm Pantoprazole Sodium (Protonix) 40 mg PO DAILYAC [facility] Last Admin: 01/28/19 05:59 Dose: 40 mg Potassium Chloride (KLOR-CON) 10 meq PO DAILY WM [facility] Last Admin: 01/28/19 09:47 Dose: Not Given Prednisone (Prednisone) 10 mg PO DAILYWM [facility] Last Admin: 01/28/19 09:31 Dose: 10 mg ALLERGIES cephalexin monohydrate [From Keflex] Allergy (Verified 01/09/19 09:23) codeine Adverse Reaction (Verified 01/09/19 09:23) diphenhydramine [From Benadryl] Adverse Reaction (Verified 01/09/19 09:23) latex Adverse Reaction (Verified 01/09/19 09:23) meperidine [From Demerol] Adverse Reaction (Verified 01/09/19 09:23) DISCONTINUED MEDICATIONS NONE NEW PRESCRIPTIONS: DIFLUCAN 150 MG TAKE 1 EVERY OTHER DAY (3 DOSES) COZAAR 50 MG BID ALPRAZOLAM 0.25 MG TAKE QID PRN PROTONIX 40 MG DAILY LEVAQUIN 250 MG DAILY FOR 4 DAYS SMOKING: NOT APPLICABLE DISEASE SPECIFIC EDUCATION: COPD USE OF OXYGEN, INHALERS PRESCRIPTIONS, INCLUDING USE OF STEROIDS APPOINTMENT LAB REVIEW: 01/27/19 04:45 01/27/19 04:45 PLAN: DISCHARGE HOME DIET: REGULAR TOLERATED, INCLUDING SNACKS DURING THE DAY. AVOID SPICY FOODS ACTIVITY: GRADUALLY RESUME TOLERATED USING OXYGEN AT 2 LITERS CONTINUE MEDICATIONS LISTED ON NURSING DISCHARGE INFORMATION SHEET AN APPOINTMENT IS SCHEDULED WITH DR. WOODALL ON January AT 10 AM. PLEASE CALL IF YOU NEED TO RESCHEDULE CODE STATUS: CPR ONLY MS. FLETCHER IS ALERT AND ORIENTED X 3. SPEECH IS CLEAR. MS. FLETCHER LIVES AT HOME ALONE. HER SON, NATIVIDAD IS SUPPORTIVE AND PLANS TO STAY AT NIGHT WITH HER UNTIL SHE FEELS COMFORTABLE STAYING ALONE. HER [id number], XOCHITL WILL BE STAYING DURING THE DAY. MS. FLETCHER DECLINED HOME HEALTH AND FEELS HER SON, NATIVIDAD WHO IS A BECKHAM CAN HELP HER WITH THERAPY. SHE HAS AN OLD WALKER AT HOME , BUT DECLINES OFFER OF A NEW WALKER. SHE HAS OXYGEN AT HOME AND USES THIS CONTINUOUSLY. SHE DOES NOT HAVE A NEBULIZER, BUT USES INHALERS PRESCRIBED BY HER PHYSICIAN. SHE FEEDS HERSELF AND HER APPETITE IS FAIR, CONSUMING 25-100 % OF HER MEALS. SHE HAS REQUIRED STAND BY ASSISTANCE TO CGA ASSISTANCE WITH AMBULATION. MS. FLETCHER IS CONTINENT OF BLADDER AND BOWEL. SKIN IS THIN AND LOOSE WITH SCATTERED AREAS OF ECCHYMOSIS NOTED. A SMALL OPEN AREA IS BEHIND THE LEFT KNEE THAT IS FREE OF DRAINAGE AND OPEN TO AIR. JAIMIE WOODALL MD
--- NOTE | 2019-01-31 14:25 | PN ---
01/19/19: Level 5 01/20/19: Intermediate or higher than intermediate a few days 01/21/19:Intermediate or higher than intermediate a few days 01/22/19:Intermediate or higher than intermediate a few days 01/23/19:Intermediate or higher than intermediate a few days 01/24/19:Intermediate or higher than intermediate a few days 01/25/19:Intermediate or higher than intermediate a few days 01/26/19:Intermediate or higher than intermediate a few days 01/27/19:Intermediate or higher than intermediate a few days 01/28/19: D as in discharge MTDD
== END 2019-01-28 14:46 | disposition home or self-care (01) | DRG 552 ==
LOC: SCU 16:23
PROVIDERS: ADMIT Internal Medicine; ATTEND Internal Medicine
DX: M62.830 Muscle spasm of back (principal); M48.50XA Collapsed vertebra, not elsewhere classified, site unspecified, initial encounter for fracture; J44.1 Chronic obstructive pulmonary disease with (acute) exacerbation; N39.0 Urinary tract infection, site not specified; J42 Unspecified chronic bronchitis; B96.20 Unspecified Escherichia coli [E. coli] as the cause of diseases classified elsewhere; K20.9 Esophagitis, unspecified; K21.9 Gastro-esophageal reflux disease without esophagitis; E87.6 Hypokalemia; E78.5 Hyperlipidemia, unspecified; E53.8 Deficiency of other specified B group vitamins; G47.00 Insomnia, unspecified; I71.2 Thoracic aortic aneurysm, without rupture; I71.4 Abdominal aortic aneurysm, without rupture; I10 Essential (primary) hypertension; D64.9 Anemia, unspecified; M81.0 Age-related osteoporosis without current pathological fracture; F41.9 Anxiety disorder, unspecified; L40.9 Psoriasis, unspecified; Z99.81 Dependence on supplemental oxygen
CPT/HCPCS: 36415; 80053; 81001; 85025; 87086; 87186; 94640; 97802